=== PATIENT | female | born 1970 | race Caucasian/White ===

== ENCOUNTER 2025-04-08 12:23 | Inpatient (IN) | payer BC, SELFPAY ==
[2025-04-08] VITALS (8 sets, daily range): BP systolic 101–134; BP diastolic 47–69; PULSE 92–118; RESP 12–118; TEMP 36.7–37.1; O2SAT 93–99; BMI 35.7; BMI 37.2; BMI 32.4
--- NOTE | ~2025-04-08 | CT_ITS ---
CLINICAL HISTORY: triple phase portal vein thrombosis, PER MD LIVER PROTOCOL OK TO CHANGE --- Additional Notes or Special Instructions: went to get at 1536 pts iv was not working, nurse putting in CT angio abdomen with and without contrast Comparison: US/SR - US ABDOMEN DOPPLER - 04/08/25 14:51 EDT Findings: Small right pleural effusion. Consolidation of the right lower lobe. The left lung base is clear. Status post cholecystectomy. The common bile duct measures the upper limit of normal status post cholecystectomy, measuring up to 1.0 cm. Cirrhotic liver morphology with lobular contour of the liver capsule. The liver measures 19.5 cm in craniocaudal dimension. On the noncontrast images the liver is markedly decreased in attenuation, measuring 10 Hounsfield units. No liver lesion; no lesions which appear on the arterial phase images and demonstrate washout. No splenomegaly. Subcentimeter low attenuating lesion in the left kidney which is too small to characterize. The other solid organs are unremarkable. No bowel dilation. There is wall thickening of the small bowel and colon which is likely secondary to increased hydrostatic pressure from portal hypertension. A normal appendix is identified. No aneurysm, dissection or significant stenosis. The hepatic artery is patent without significant stenosis. Moderate calcified atherosclerotic disease. There are large varices in the upper abdomen which extend down into the left lower quadrant. Esophageal varices are present. Of the portal vein is patent without thrombus. Patent splenic and superior mesenteric veins. Patent hepatic veins. Lymphadenopathy in the rajwinder hepatis measures up to 1.2 cm in short axis. Small ascites. No acute osseous abnormality. Impression: No portal vein thrombus. Cirrhotic liver with small ascites and large varices. No suspicious liver lesions. 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 Consolidation of the right lower lobe, likely compressive atelectasis. This document has been electronically signed by: Estephania Gerardo MD on 04/08/2025 19:03:47
--- NOTE | ~2025-04-08 | US_ITS ---
EXAMINATION: US PORTAL VEIN, HEPATIC VEINS, SPLENIC VESSELS AND HEPATIC ARTERY WITH COLOR DOPPLER SPECTRAL ANALYSIS. CLINICAL INFORMATION: Cirrhosis. Right upper quadrant pain. Hyperbilirubinemia. COMPARISON: None available. TECHNIQUE: Ultrasound along with color Doppler imaging and spectral analysis was performed of the main portal veins, hepatic veins, splenic vessels, hepatic artery. FINDINGS: The main portal vein and main left and right portal veins demonstrated intraluminal echo abnormality with hepatofugal flow direction. The interrogated middle left hepatic veins are patent with normal hepatofugal flow direction. The right is not fully depicted on the exam. The splenic vessels are patent with normal flow direction. The main hepatic artery is peak systolic velocity 313 cm/s. The left hepatic artery is patent with peak systolic velocity 96 cm/s. The left hepatic artery is patent with peak systolic velocity 174 cm/s. Small to moderate volume of ascites. US/US abdomen limited IMPRESSION: Nonocclusive thrombus in the main portal veins with hepatofugal flow direction. Concerning hemodynamically significant stenosis in the main hepatic artery. Ascites, small to moderate volume. Recommend dedicated triple phase liver CT versus MRI liver. Electronically signed by: Flip Oreilly MD 04/08/2025 03:49 PM EDT
--- NOTE | ~2025-04-08 | US_ITS ---
EXAMINATION: US PORTAL VEIN, HEPATIC VEINS, SPLENIC VESSELS AND HEPATIC ARTERY WITH COLOR DOPPLER SPECTRAL ANALYSIS. CLINICAL INFORMATION: Cirrhosis. Right upper quadrant pain. Hyperbilirubinemia. COMPARISON: None available. TECHNIQUE: Ultrasound along with color Doppler imaging and spectral analysis was performed of the main portal veins, hepatic veins, splenic vessels, hepatic artery. FINDINGS: The main portal vein and main left and right portal veins demonstrated intraluminal echo abnormality with hepatofugal flow direction. The interrogated middle left hepatic veins are patent with normal hepatofugal flow direction. The right is not fully depicted on the exam. The splenic vessels are patent with normal flow direction. The main hepatic artery is peak systolic velocity 313 cm/s. The left hepatic artery is patent with peak systolic velocity 96 cm/s. The left hepatic artery is patent with peak systolic velocity 174 cm/s. Small to moderate volume of ascites. US/US duplex arterial venous comp IMPRESSION: Nonocclusive thrombus in the main portal veins with hepatofugal flow direction. Concerning hemodynamically significant stenosis in the main hepatic artery. Ascites, small to moderate volume. Recommend dedicated triple phase liver CT versus MRI liver. Electronically signed by: Flip Oreilly MD 04/08/2025 03:49 PM EDT
--- NOTE | 2025-04-08 12:30 | ED_ITS ---
HPI - General Adult General Chief complaint: General Medical Stated complaint: check Liver Function Time Seen by Provider: 04/08/25 13:23 Source: patient Mode of arrival: ambulatory Limitations: no limitations History of Present Illness ED Provider: KHADIJAH Alarcon HPI narrative: This is a 54-year-old female with past medical history significant for atypical ductal hyperplasia, cirrhosis of the liver, dysthymia, hypertension, facial neuralgia, hepatic steatosis, hyperlipidemia, obesity, alcohol abuse presenting to the emergency department for concerns of yellowing of the eyes lower extremity edema, abdominal distention ongoing for the past few months rapidly worsening. Patient reports a few months ago she was diagnosed with liver cirrhosis. She tells me she does not have a history of hepatitis however she drinks 2 glasses of wine a day. She is still currently drinking. She reports the reason she decided to come in today as her , she reports he is afraid she is in liver failure. She denies fevers, chills abdominal pain, nausea, vomiting, chest pain, shortness of breath, headache, vision changes, dizziness and weakness. Related Data Allergies Allergy/AdvReac Type Severity Reaction Status Date / Time No Known Allergies Allergy Verified 04/08/25 12:33 Review of Systems 2 Review of Systems: Yes all other systems are reviewed and are negative PMFSH Past Medical History Attestation statement: The following information was validated with the patient. Source: old records reviewed and nursing notes reviewed Social History Social History Alcohol intake: current Alcohol intake frequency: 0-2 drinks per day Alcohol type: beer and wine Smoked in Last 30 Days: No Use of substances other than those prescribed or required for medical reasons: No Advance Directives: Yes Advance Directives Information Provided: Yes Advance Directives on File: No Patient : No Physical Exam ED Exam Exam: Appearance: Alert.? Oriented X3.? No acute distress.? Head: Normocephalic, atraumatic, no step-offs or deformities Eyes: Pupils equal, round and reactive to light.?+ jaundice to eyes ENT: Pharynx normal.? Neck: Normal inspection.? Neck supple.? CVS: Normal heart rate and rhythm.? Pulses normal.? Respiratory: No respiratory distress.? Breath sounds normal.? Abdomen: Soft and nontender.?Ascites noted Skin: Skin warm and dry.? + jaundice skin color.? Normal skin turgor.? Extremities: + LE edema 3+ pitting.? No calf ttp. 5/5 strength to bilateral upper and lower extremities Back: No midline tenderness, no C-spine tenderness, full range of motion, no CVA tenderness bilaterally Neuro: Oriented X 3.? No motor deficit.? No sensory deficit. CN 2-12 intact Vital Signs: Vital Signs - 24 hr 04/08/25 12:30 04/08/25 13:31 04/08/25 14:28 Temperature 98.0 F 98.4 F Pulse Rate 118 H 96 100 Respiratory Rate 18 12 16 Blood Pressure 117/56 L 124/60 114/63 Pulse Oximetry 95 97 96 Oxygen Delivery Method Room Air Room Air Room Air 04/08/25 15:51 Temperature 98.8 F Pulse Rate 97 Respiratory Rate 12 Blood Pressure 101/47 L Pulse Oximetry 96 Oxygen Delivery Method Room Air BMI result Body Mass Index 37.2 Vital signs stable Course Course Course Narrative: Rapid medical examination performed in triage by Lisette Louise PA-C. Patient is a 54 year old assigned female at presenting to the emergency department requesting liver testing. Patient states that she is a daily drinker but has cut back how much she drinks per day. Patient was diagnosed with cirrhosis through [facility] on 12/23/2024. Detailed physical exam and review of systems are deferred to the supervisor waterproofing. Labs ordered. Patient placed back in the waiting room pending room availability and results. Reevaluation(s) Reevaluation #1: Patient's CBC with a anemia MCV 99.3 likely secondary to alcohol abuse chronically. Chemistry with total bilirubin 8.3 , direct bilirubin pending. AST ALT elevated in a nearly 2-1 fashion against supporting chronic alcohol abuse. Albumin 2.7. Patient's hepatitis panel negative. I did get a ultrasound of right upper extremity with color Doppler which shows nonocclusive thrombus in the main portal vein with hepatofugal flow direction. Concerning hemodynamically significant stenosis in the main hepatic artery. Ascites, [id number] volume. I did discuss this with GI who recommends triple phase CT or MRI. MRI can be done upon hospital admission. Hospitalist aware of case. I am waiting for CT abdomen and pelvis prior to admitting patient . Time: 16:01 Reevaluation #2: I did start patient on phenobarbital for prevention of alcohol withdrawal seizures. Patient has never really stopped drinking alcohol since she was [address] abdomen still pending. Time: 16:33 Medications Administered Generic Name Dose Route Start Last Admin Trade Name Freq PRN Reason Stop Dose Admin Ceftriaxone Sodium 1 gm 04/08/25 16:00 04/08/25 16:28 Ceftriaxone Sodium 1 Gm Vial IVPUSH 1 gm Q24H RICH Administration Discontinued Medications Generic Name Dose Route Start Last Admin Trade Name Freq PRN Reason Stop Dose Admin Phenobarbital Sodium 182 mg 04/08/25 16:15 04/08/25 16:29 Phenobarbital Sodium 130 Mg/Ml Im Once IM 04/08/25 16:16 182 mg ONCE ONE Administration Medical Decision Making Medical Decision Making [facility] Narrative: 1429 This is a 54-year-old female presenting with worsening abdominal distention, yellowing of the eyes and skin, easy bruising, rapidly worsening lower extremity edema. Denies shortness of breath, abdominal pain, fevers, chills Physical exam ascites, jaundice eyes, skin. Significantly edematous lower extremities 3+ bilaterally pitting. 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 Will rule out metabolic derangements, anemia. I do not suspect SBP no abdominal tenderness to palpation no fevers or clinical signs of infection at this time. Patient does have a bruise to her right breast, no associated trauma. I do not suspect acute hepatic encephalopathy. Plan labs, imaging. 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 Will rule out metabolic derangements, anemia. I do not suspect SBP no abdominal tenderness to palpation no fevers or clinical signs of infection at this time. Patient does have a bruise to her right) Admission/Observation Consideration of admission/observation: Escalation of care including admission/observation considered Consult Healthcare Provider Management of the patient was discussed with: Stallion Manager (GI ) Lab Data [facility] Lab Attestation statement: I reviewed the patient's lab results. 04/08/25 12:53 04/08/25 12:53 Labs: Lab Results 04/08/25 Range/Units 12:53 WBC 8.4 (4.8-10.8) X10*3/uL RBC 2.69 L (4.20-5.50) X10*6/uL Hgb 9.2 L (12.0-16.0) g/dl Hct 26.7 L (37.0-47.0) % MCV 99.3 H (80.0-98.0) fL MCH 34.2 H (27.0-33.0) pg MCHC 34.5 (31.0-35.0) g/dl RDW 19.1 H (11.0-16.0) % Plt Count 67 L (160-400) X10*3/uL MPV 10.5 (9.4-12.3) fL Immature Gran % (Auto) 0.7 H (0.0-0.4) % Neut % (Auto) 73.2 H (45-73) % Lymph % (Auto) 12.9 L (20-40) % [place] % (Auto) 11.4 H (2-11) % Eos % (Auto) 0.6 (0-4) % Baso % (Auto) 1.2 (0-2) % Lymph # (Auto) 1.1 L (1.2-4.9) X10*3/uL [place] # (Auto) 1.0 (0.1-1.2) X10*3/uL Eos # (Auto) 0.1 (0.0-0.4) X10*3/uL Baso # (Auto) 0.1 (0.0-0.2) X10*3/uL Abs Immat Gran (auto) 0.06 H (0.00-0.03) X10*3/uL Absolute Neuts (auto) 6.1 (2.0-8.3) x10*3/uL Absolute Nucleated RBC 0.000 (0.0-0.012) X10*3/uL Nucleated RBC % (auto) 0.0 (0.0-0.2) /100WBC Sodium 132 L (135-145) mmol/L Potassium 4.6 (3.3-5.1) mmol/L Chloride 100 (96-108) mmol/L Carbon Dioxide 20 L (22-29) mmol/L Anion Gap 17 (12-20) BUN 12 (9-16) mg/dL Creatinine 1.04 (0.5-1.4) mg/dL Estim Creat Clear Calc 60.4 Estimated GFR 56 Random Glucose 162 H (60-115) mg/dL Calcium 7.9 L (8.4-10.2) mg/dL Magnesium 1.8 (1.6-2.6) mg/dL Total Bilirubin 8.3 H (0.0-1.0) mg/dL Direct Bilirubin 4.6 H (0.0-0.5) mg/dL AST 188 H (5-31) U/L ALT 50 H (0-31) U/L Alkaline Phosphatase 109 (39-117) U/L B-Natriuretic Peptide 90 (<100) pg/mL Total Protein 7.3 (6.5-8.0) g/dL Albumin 2.7 L (3.5-5.0) g/dL Ethyl Alcohol 275 mg/dL Hepatitis A IgM Ab Nonreactive (Nonreactive) Hep Bs Antigen Negative (Negative) Hep Bs Antibody NONREACTIVE (Nonreactive) Hep B Core Total Ab Nonreactive (Nonreactive) Hepatitis C Ab (EIA) Nonreactive (Nonreactive) Independent Interpretation I performed an independent interpretation of an: CT Scan Radiology Impression Discussion of test interpretation with radiology: I have reviewed the radiologist's reading. Independent Historian Clinical information obtained from an independent historian. History obtained from or confirmed by: Spouse External Record Review External record reviewed: Inpatient record, Office record, Outpatient record, Prior outpatient labs, Prior outpatient radiology, Primary care record and Outside ED record I did review records from [facility]. She had a CT abdomen and pelvis on on 12/17/2024 with IV and oral contrast which shows slight apparent wall thickening of the proximal ascending colon with minimal surrounding fat stranding. Multiple vascular collaterals along the left retroperitoneum with dilated left ovarian vein. Few small collateral vessels extending from the right ovary towards the anterior abdominal wall. Cirrhotic morphology of the liver. Tiny subcutaneous soft tissue contusion Critical Care Time Critical Care Time Critical Care Time: Yes Total Critical Care Time: 35 Attestation: I attest to this time spent taking care of the patient, obtaining history, physical, reviewing labs, imaging, treatment of patients condition +/- specialist/hospitalist consult +/- procedure Discharge Plan Discharge Clinical Impression: Hepatitis, Cirrhosis, Budd-Chiari syndrome, Alcohol use disorder Patient Disposition: Admitted As Inpatient Print Language: Monegasque
[2025-04-08 12:57] LABS: MANUAL DIFF FLAG NO
[2025-04-08 12:59] LABS: Hemoglobin 9.2 g/dl (12.0-16.0); NRBC Abs Auto 0.000 X10*3/uL (0.0-0.012); NRBC Pct Auto 0.0 /100WBC (0.0-0.2)
[2025-04-08 13:04] LABS: Hematocrit 26.7 % (37.0-47.0); Imm Gran Abs Auto 0.06 X10*3/uL (0.00-0.03); Imm Gran Pct Auto 0.7 % (0.0-0.4); Lymphocytes Absolute Auto 1.1 X10*3/uL (1.2-4.9); Mean Corpuscular HGB Conc 34.5 g/dl (31.0-35.0); Mean Corpuscular Hemoglobin 34.2 pg (27.0-33.0); Mean Corpuscular Volume 99.3 fL (80.0-98.0); Red Blood Count 2.69 X10*6/uL (4.20-5.50); White Blood Count 8.4 X10*3/uL (4.8-10.8)
[2025-04-08 13:05] LABS: Platelet Count 67 X10*3/uL (160-400)
[2025-04-08 13:27] LABS: Alanine Aminotransferase 50 U/L (0-31); Albumin Level 2.7 g/dL (3.5-5.0); Alkaline Phosphatase 109 U/L (39-117); Anion Gap 17 (12-20); Aspartate Amino Transferase 188 U/L (5-31); Blood Urea Nitrogen 12 mg/dL (9-16); Calcium 7.9 mg/dL (8.4-10.2); Carbon Dioxide 20 mmol/L (22-29); Chloride 100 mmol/L (96-108); Creatinine Clr Calc Pharmacy 60.4; Estimated Glomerular Filt Rate 56; Magnesium 1.8 mg/dL (1.6-2.6); Potassium 4.6 mmol/L (3.3-5.1); Sodium 132 mmol/L (135-145); Total Protein 7.3 g/dL (6.5-8.0)
--- NOTE | 2025-04-08 13:27 | PC.NURSE ---
Took all meds all usual meds. No Tylenol for several weeks. She was using it for a shoulder injury. Reports that years ago she may have had a seizure r/t alcohol withdrawal. Usually drinks 1-2 servings of alcohol daily. No complaints, family and friends concerned about her liver.
[2025-04-08 13:43] LABS: HBS Num1 0.00 mIU/mL (0-7.99); HBc Num1 0.12 S/CO (0.00-0.79); HBsAGNum1 0.35 S/CO (0.00-0.99); Hepatitis A Antibody IgM 0.25 Index (0-0.79); Hepatitis B Surface Antigen Negative (Negative); ~HepC Num1 0.27 S/CO (0.00-0.79); ~Hepatitis A Antibody IgM Nonreactive (Nonreactive); ~Hepatitis B Surface Antibody NONREACTIVE (Nonreactive); ~Hepatitis C Antibody Nonreactive (Nonreactive)
[2025-04-08 15:54] LABS: B Type Natriuretic Peptide 90 pg/mL (<100)
[2025-04-08] MEDS: PHENobarbitaL sodium 130 MG/ML IM ONCE 182 MG IM (16:29)
--- NOTE | 2025-04-08 16:30 | P.HPHOSP_ITS ---
History of Present Illness Date of Service: 04/08/25 Chief Complaint: yellow skin, abdominal and leg swelling 54yo F with HTN recently diagnosed by her PCP with cirrhosis on CT scan in November 2024. At that point her total bilirubin was 1.7. The scan was ordered due to abdominal swelling and bruising. She came in today with worsening jaundice, abdominal swelling, and leg swelling. She drinks at least 1 serving of wine or beer daily and often much more, up to 5-10 servings daily on the weekends. This has been the case since she was 22 years old with periods of sobriety for and a cleanse . Sometimes she does get shaky when she doesn't drink but no history of seizures. No real abdominal discomfort or pain. No hematemesis, hematochezia, or melena. No confusion. No history of diabetes and no family history of liver disease. Here in the ED, Tbili was 8.3. Serum ethanol level 275. She was anemic and thrombocytopenic. Abominal US showed nonocclusive thrombus in the main portal veins with hepatofugal flow direction; as well as concerning hemodynamically significant stenosis in the main hepatic artery. Review of Systems 2 Review of Systems: Yes all other systems are reviewed and are negative [facility] History Hypertension Social History Household Members: Children Housing: House Do you presently have visiting nurse or other home services: No Alcohol intake: current Alcohol intake frequency: 0-2 drinks per day Alcohol type: beer and wine Patient Tobacco Use Status: Former Tobacco user Tobacco use type: Cigarette Smoked in Last 30 Days: No e-Cigarette/Vaping Use: Never Used Use of substances other than those prescribed or required for medical reasons: No Currently Displaying Signs/Symptoms of Drug Intoxication Withdrawal: No Have you been hit, kicked, punched, or otherwise hurt by someone within the past year? If so, by whom?: No Do you feel safe in your current relationship?: Yes Is there a partner from a previous relationship who is making you feel unsafe now?: No Are you made to feel afraid or neglected: No Advance Directives: Yes Advance Directives Information Provided: Yes Advance Directives on File: No Advance Directives Date on File: 04/08/25 Recently lost weight without trying: No Eating poorly because of decreased appetite: No Nutrition Risks: No Nutritional Risk Patient : No : No Poor oral hygiene: No Meds Allergies Allergy/AdvReac Type Severity Reaction Status Date / Time No Known Allergies Allergy Verified 04/08/25 12:33 Active Medications: Current Medications Ceftriaxone Sodium (Ceftriaxone Sodium 1 Gm Vial) 1 gm IVPUSH Q24H RICH Last Admin: 04/08/25 16:28 Dose: 1 gm Pharmacy Consult (Consult Rx Etoh Phenob Im/Po) 1 each MISCELLANE ONCE PRN; Protocol PRN Reason: Consult order Phenobarbital (Phenobarbital 30 Mg Tablet) 30 mg PO BID [facility] Stop: 04/10/25 21:01 Phenobarbital (Phenobarbital 15 Mg Tablet) 15 mg PO BID [facility] Stop: 04/12/25 21:01 Phenobarbital (Phenobarbital 15 Mg Tablet) 15 mg PO DAILY RICH Stop: 04/14/25 09:01 Phenobarbital Sodium (Phenobarbital Sodium 130 Mg/Ml Vial Im Q3hx2) 137 mg IM Q3H RICH Stop: 04/08/25 22:31 Home Medications ?Medication ?Instructions ?Recorded ?Confirmed ?Last Taken ?Type meloxicam 15 mg tablet 15 mg PO DAILY PRN Pain 03/2804/08/25 04/08/25 History olmesartan 5 mg tablet 10 mg PO DAILY 04/08/2503/2804/08/25 History Physical Exam 2 Vital Signs and Narrative: Vital Signs: Last Vital Signs Temp 98.8 F 04/08/25 15:51 Pulse 97 04/08/25 15:51 Resp 12 04/08/25 15:51 BP 101/47 L 04/08/25 15:51 Pulse Ox 96 04/08/25 15:51 O2 Del Method Room Air 04/08/25 15:51 BMI result Body Mass Index 37.2 Gen: somewhat tremulous HEENT: sclera anicteric, moist mucus membranes Neck: supple Lungs: clear to auscultation bilaterally Heart: regular, tachycardic, no murmurs Abd: soft, distended, non-tender Ext: 1+ lower extremity edema Skin: warm/well-perfused, jaundiced with extensive spider angiomata Neuro: alert and oriented x3, no focal findings Psych: appropriate affect Results Labs 04/08/25 12:53 04/09/25 07:30 Labs: Laboratory Results - last 24 hr 04/08/25 12:53 MCV 99.3 H MCH 34.2 H MCHC 34.5 RDW 19.1 H Plt Count 67 L MPV 10.5 Immature Gran % (Auto) 0.7 H Neut % (Auto) 73.2 H Lymph % (Auto) 12.9 L [place] % (Auto) 11.4 H Eos % (Auto) 0.6 Baso % (Auto) 1.2 Lymph # (Auto) 1.1 L [place] # (Auto) 1.0 Eos # (Auto) 0.1 Baso # (Auto) 0.1 Abs Immat Gran (auto) 0.06 H Absolute Neuts (auto) 6.1 Absolute Nucleated RBC 0.000 Nucleated RBC % (auto) 0.0 Anion Gap 17 Estim Creat Clear Calc 60.4 Estimated GFR 56 Random Glucose 162 H Calcium 7.9 L Magnesium 1.8 Total Bilirubin 8.3 H Direct Bilirubin 4.6 H AST 188 H ALT 50 H Alkaline Phosphatase 109 B-Natriuretic Peptide 90 Total Protein 7.3 Albumin 2.7 L Ethyl Alcohol 275 Hepatitis A IgM Ab Nonreactive Hep Bs Antigen Negative Hep Bs Antibody NONREACTIVE Hep B Core Total Ab Nonreactive Hepatitis C Ab (EIA) Nonreactive Imaging Radiologist's Impressions: Impressions Doppler Study Ultrasound 04/08/25 14:51 IMPRESSION: Nonocclusive thrombus in the main portal veins with hepatofugal flow direction. Concerning hemodynamically significant stenosis in the main hepatic artery. Ascites, small to moderate volume. Recommend dedicated triple phase liver CT versus MRI liver. Electronically signed by: Flip Oreilly MD 04/08/2025 03:49 PM EDT Assessment and Plan (1) Cirrhosis: Status: Acute Plan 54yo F with recently diagnosed cirrhosis likely due to alcohol presenting with worsening jaundice, concern for portal vein thrombosis as well as hepatic artery stenosis. portal vein thrombosis cirrhosis ascites anemia thrombocytopenia - admit to telemetry, triple-phase CT to elucidate portal vein thrombosis as well as to check hepatic artery, GI consultation to discuss anticoagulation - monitor CBC, check FOBT, also check INR- consider steroids for EtOH hepatitis - not enough ascites to tap; place on ceftriaxone for SBP prophylaxis; diuretics eventually AUD with impending withdrawal - Addiction Medicine consult, phenobarbital taper, thiamine, folate, multivitamins HTN - hold antihypertensives as BP is soft VTE ppx - SCDs dispo - TBD code - full I anticipate that the patient will stay at least 2 midnights as an inpatient in the hospital due to the above reasons. It is neither reasonable nor safe to care for them in a less acute setting. Quality Stroke Does the patient have a stroke diagnosis?: No VTE Prior VTE?: No VTE Risk Level:: Medical - moderate - high VTE Device Contraindication: N/A - Device Ordered VTE Drug Contraindication: N/A - Med Ordered
[2025-04-08 17:13] LABS: Ammonia 69 umol/L (13-55); INTERNATIONAL NORM RATIO 2.0 (0.9-1.1); Prothrombin Time 22.9 SEC (10.9-12.4)
[2025-04-08 17:51] LABS: Hemoglobin A1C 98.6326 umol/L; Total Hemoglobin (HGBA1C) 4985.6705 umol/L
[2025-04-08] MEDS: iohexoL 350 MG/ML 100 ML INFUS..BTL IV (18:11)
--- NOTE | 2025-04-08 18:11 | PHA.MEDREC ---
Addendum entered by Pravin Washington PharmD 04/08/25 18:13: reviewed Original Note: Pharmacy Consult ? Medication Reconciliation Pharmacy has completed the medication reconciliation. Patient was able to name her medications. Patient had all her morning medications today.
[2025-04-08] MEDS: PHENobarbitaL sodium 130 MG/ML VIAL IM Q3Hx2 137 MG IM ×2 (20:18→22:58)
[2025-04-08] MEDS: 0.9 % Sodium Chloride Flush 3 ML SYRINGE IVFLUSH (22:59)
[2025-04-09] VITALS (9 sets, daily range): BP systolic 118–141; BP diastolic 57–67; PULSE 94–102; RESP 16–20; TEMP 36.9–37.4; O2SAT 94–100
[2025-04-09 08:21] LABS: INTERNATIONAL NORM RATIO 2.0 (0.9-1.1); Prothrombin Time 23.0 SEC (10.9-12.4)
[2025-04-09 09:02] LABS: Alanine Aminotransferase 38 U/L (0-31); Albumin Level 2.4 g/dL (3.5-5.0); Alkaline Phosphatase 101 U/L (39-117); Anion Gap 14 (12-20); Aspartate Amino Transferase 162 U/L (5-31); Blood Urea Nitrogen 9 mg/dL (9-16); Calcium 7.6 mg/dL (8.4-10.2); Carbon Dioxide 22 mmol/L (22-29); Chloride 101 mmol/L (96-108); Creatinine Clr Calc Pharmacy 99.3; Estimated Glomerular Filt Rate > 60; Potassium 4.2 mmol/L (3.3-5.1); Sodium 133 mmol/L (135-145); Total Protein 6.6 g/dL (6.5-8.0)
[2025-04-09] MEDS: Phytonadione (Vit K1) Oral 10 MG/ML AMPUL PO (09:09)
[2025-04-09] MEDS: 0.9 % Sodium Chloride Flush 3 ML SYRINGE IVFLUSH ×3 (09:10→19:28)
--- NOTE | 2025-04-09 09:43 | HO.PM.IMPN ---
Subjective Subjective Date of Service: 04/09/25 Interval History: No hematemesis, hematochezia, or melena. Abd swelling + leg edema. Review of Systems Review of Systems: Yes all other systems are reviewed and are negative Physical Exam Vital Signs: Vital Signs: Last Vital Signs Temp 98.5 F 04/09/25 08:00 Pulse 94 04/09/25 08:00 Resp 18 04/09/25 08:00 BP 121/58 L 04/09/25 08:00 Pulse Ox 100 04/09/25 08:00 O2 Del Method Room Air 04/09/25 08:00 BMI result Body Mass Index 32.4 Gen: in no acute distress HEENT: sclera icteric, moist mucus membranes Neck: supple Lungs: clear to auscultation bilaterally Heart: regular rate and rhythm, no murmurs Abd: soft, non-tender Ext: 1+ bilateral leg edema Skin: warm/well-perfused, jaundiced Neuro: alert and oriented x3, no focal findings, no asterixis Psych: appropriate affect Objective Data Active Medications Acetaminophen (Acetaminophen 325 Mg Tablet) 650 mg PO Q6H PRN PRN Reason: Pain, Mild 1-3,fever,headache Calcium Carbonate (Calcium Carbonate 750 Mg Tab.Chew) 750 mg PO Q4H PRN PRN Reason: Heartburn Ceftriaxone Sodium (Ceftriaxone Sodium 1 Gm Vial) 1 gm IVPUSH Q24H [facility] Last Admin: 04/08/25 16:28 Dose: 1 gm Documented By: JESSY Folic Acid (Folic Acid 1 Mg Tablet) 1 mg PO DAILY [facility] Last Admin: 04/09/25 09:08 Dose: 1 mg Documented By: CHRISTOPHE Furosemide (Furosemide 40 Mg Tablet) 40 mg PO DAILY [facility]; Protocol Magnesium Hydroxide (Milk Of Magnesia 30 Ml Oral.Susp) 30 ml PO DAILY PRN PRN Reason: Constipation Melatonin (Melatonin 3 Mg Tablet) 6 mg PO BEDTIME PRN PRN Reason: Insomnia Multivitamins/Vitamin C (Multivitamin Tablet) 1 tab PO DAILY [facility] Last Admin: 04/09/25 09:08 Dose: 1 tab Documented By: CHRISTOPHE Ondansetron HCl (Ondansetron Hcl 4 Mg/2 Ml Vial) 4 mg IVPUSH Q4H PRN PRN Reason: Nausea and Vomiting Pharmacy Consult (Consult Rx Etoh Phenob Im/Po) 1 each MISCELLANE ONCE PRN; Protocol PRN Reason: Consult order Phenobarbital (Phenobarbital 30 Mg Tablet) 30 mg PO BID [facility] Stop: 04/10/25 21:01 Last Admin: 04/09/25 09:08 Dose: 30 mg Documented By: CHRISTOPHE Phenobarbital (Phenobarbital 15 Mg Tablet) 15 mg PO BID [facility] Stop: 04/12/25 21:01 Phenobarbital (Phenobarbital 15 Mg Tablet) 15 mg PO DAILY [facility] Stop: 04/14/25 09:01 Sodium Chloride (0.9 % Sodium Chloride Flush 3 Ml Syringe) 3 ml IVFLUSH QSHIFT [facility] Last Admin: 04/09/25 09:10 Dose: 3 ml Documented By: CHRISTOPHE Spironolactone (Spironolactone 25 Mg Tablet) 25 mg PO DAILY [facility]; Protocol Thiamine HCl (Thiamine Hcl 100 Mg Tablet) 100 mg PO DAILY [facility] Last Admin: 04/09/25 09:08 Dose: 100 mg Documented By: CHRISTOPHE Labs 04/08/25 12:53 04/09/25 07:30 Labs: Laboratory Results - last 24 hr 04/08/25 04/08/25 04/09/25 12:53 17:00 07:30 MCV 99.3 H MCH 34.2 H MCHC 34.5 RDW 19.1 H Plt Count 67 L MPV 10.5 Immature Gran % (Auto) 0.7 H Neut % (Auto) 73.2 H Lymph % (Auto) 12.9 L Dyer % (Auto) 11.4 H Eos % (Auto) 0.6 Baso % (Auto) 1.2 Lymph # (Auto) 1.1 L Dyer # (Auto) 1.0 Eos # (Auto) 0.1 Baso # (Auto) 0.1 Abs Immat Gran (auto) 0.06 H Absolute Neuts (auto) 6.1 Absolute Nucleated RBC 0.000 Nucleated RBC % (auto) 0.0 Hold Purple Top SEE NOTE PT 22.9 H 23.0 H INR 2.0 H 2.0 H Anion Gap 17 14 Estim Creat Clear Calc 60.4 99.3 Estimated GFR 56 > 60 Random Glucose 162 H 87 Estimat Average Glucose 68 Hemoglobin A1c % 4.0 Calcium 7.9 L 7.6 L Magnesium 1.8 Total Bilirubin 8.3 H 6.0 H Direct Bilirubin 4.6 H AST 188 H 162 H ALT 50 H 38 H Alkaline Phosphatase 109 101 Ammonia 69 H B-Natriuretic Peptide 90 Total Protein 7.3 6.6 Albumin 2.7 L 2.4 L Ethyl Alcohol 275 Hepatitis A IgM Ab Nonreactive Hep Bs Antigen Negative Hep Bs Antibody NONREACTIVE Hep B Core Total Ab Nonreactive Hepatitis C Ab (EIA) Nonreactive Assessment and Plan (1) Cirrhosis: Status: Acute Plan d2 for 54yo F with recently diagnosed cirrhosis likely due to alcohol presenting with worsening jaundice, concern for portal vein thrombosis as well as hepatic artery stenosis on US but CT did not show these cirrhosis - likely alcoholic; cessation counseled; Gastroenterology consult pending alcoholic hepatitis - MDF high; discuss steroids with Gastroenterology ascites - Na restriction, start furosemide + spironolactone, recheck BMP tomorrow, ceftriaxone to prevent SBP coagulopathy - vit K 10 mg PO x1, recheck INR tomorrow anemia thrombocytopenia - recheck CBC tomorrow, avoid heparin AUD with impending withdrawal - Addiction Medicine consult pending, continue phenobarbital taper, thiamine, folate, multivitamins HTN - d/c olmesartan as starting diuretics as above VTE ppx - SCDs dispo - eventual home In my clinical judgment, the patient requires continued inpatient hospitalization for the following reasons: phenobarbital taper, EtOH hepatitis Total time managing care of this patient today: 40 minutes. Quality Stroke Does the patient have a stroke diagnosis?: No VTE Prior VTE?: No VTE Risk Level:: Medical - moderate - high VTE Device Contraindication: N/A - Device Ordered VTE Drug Contraindication: N/A - Med Ordered
[2025-04-09 13:34] LABS: OBS Int Ctl Valid YES; OBS1 NEGATIVE (NEGATIVE)
[2025-04-09 14:56] LABS: Hemoglobin 8.4 g/dl (12.0-16.0); Mean Corpuscular Volume 99.6 fL (80.0-98.0); NRBC Abs Auto 0.000 X10*3/uL (0.0-0.012); NRBC Pct Auto 0.0 /100WBC (0.0-0.2); PLT CLUMP 1
[2025-04-09 14:58] LABS: Hematocrit 23.7 % (37.0-47.0); Mean Corpuscular HGB Conc 35.4 g/dl (31.0-35.0); Mean Corpuscular Hemoglobin 35.3 pg (27.0-33.0); Platelet Count 57 X10*3/uL (160-400); Red Blood Count 2.38 X10*6/uL (4.20-5.50); White Blood Count 5.9 X10*3/uL (4.8-10.8)
--- NOTE | 2025-04-09 16:36 | MHC.CM.PN ---
PT REPORTS SHE LIVES AT HOME WITH HER DAUGHTER AND IS INDEPENDENT WITH CARE SHE HAS NO DME OR SERVICES COPY OF HCP REQUESTED PCP: [facility] DCP: HOME VIA PRIVATE TRANSPORT
--- NOTE | 2025-04-09 17:02 | PM.EVENT ---
Event Note Date of Service: 04/09/25 Event Note: Pt has a very small but persistent area of bleeding from the right side of her nose, externally. Pressure has been applied with nasal clamp, gauze, and Surgicel. However, the area persistently oozes. Surgicel replaced. WIll give IV TXA, IV vit K, consult Gen Surg- may need cauterization. Considered silver nitrate but this may scar. Time Spent With Patient Time: Total time managing care of this patient today ____ minutes.
--- NOTE | 2025-04-09 17:50 | P.CONGS_ITS ---
History of Present Illness Consult details Consult date: 04/09/25 Narrative: [age] year old female with known cirrhosis, admitted yesterday because of worsening jaundice. He will bilirubin was noted to be 8 on admission. She also has known alcohol use disorder and previous hepatitis She had this skin lesion on the right ala of the nose which he had been bleeding constantly despite pressure dressings so I was consulted. The patient has known thrombocytopenia as well. Review of Systems 2 Constitutional: Constitutional: Denies chills and Denies fever(s) Cardiovascular: Cardiovascular: Denies chest pain at rest Respiratory: Respiratory: Denies cough Gastrointestinal: Gastrointestinal: Denies abdominal pain Genitourinary: Genitourinary: Denies urinary frequency PMFSH Past Medical History Medical History (Updated 04/09/25 @ 17:53 by Nacho Kearney MD) Hemorrhage of skin lesion Hypertension Social History Social History Household Members: Children Housing: House Do you presently have visiting nurse or other home services: No Alcohol intake: current Alcohol intake frequency: 0-2 drinks per day Alcohol type: beer and wine Patient Tobacco Use Status: Former Tobacco user Tobacco use type: Cigarette Smoked in Last 30 Days: No e-Cigarette/Vaping Use: Never Used Use of substances other than those prescribed or required for medical reasons: No Currently Displaying Signs/Symptoms of Drug Intoxication Withdrawal: No Have you been hit, kicked, punched, or otherwise hurt by someone within the past year? If so, by whom?: No Do you feel safe in your current relationship?: Yes Is there a partner from a previous relationship who is making you feel unsafe now?: No Are you made to feel afraid or neglected: No Advance Directives: Yes Advance Directives Information Provided: Yes Advance Directives on File: No Advance Directives Date on File: 04/08/25 Recently lost weight without trying: No Eating poorly because of decreased appetite: No Nutrition Risks: No Nutritional Risk Patient : No : No Poor oral hygiene: No service: No Meds Allergies Allergy/AdvReac Type Severity Reaction Status Date / Time No Known Allergies Allergy Verified 04/08/25 12:33 Active Medications: Current Medications Acetaminophen (Acetaminophen 325 Mg Tablet) 650 mg PO Q6H PRN PRN Reason: Pain, Mild 1-3,fever,headache Calcium Carbonate (Calcium Carbonate 750 Mg Tab.Chew) 750 mg PO Q4H PRN PRN Reason: Heartburn Ceftriaxone Sodium (Ceftriaxone Sodium 1 Gm Vial) 1 gm IVPUSH Q24H [facility] Last Admin: 04/09/25 16:40 Dose: 1 gm Folic Acid (Folic Acid 1 Mg Tablet) 1 mg PO DAILY [facility] Last Admin: 04/09/25 09:08 Dose: 1 mg Furosemide (Furosemide 40 Mg Tablet) 40 mg PO DAILY [facility]; Protocol Last Admin: 04/09/25 10:51 Dose: 40 mg Phytonadione 10 mg/ Sodium (Chloride) 51 mls @ 51 mls/hr IV ONCE ONE Stop: 04/09/25 17:55 Magnesium Hydroxide (Milk Of Magnesia 30 Ml Oral.Susp) 30 ml PO DAILY PRN PRN Reason: Constipation Melatonin (Melatonin 3 Mg Tablet) 6 mg PO BEDTIME PRN PRN Reason: Insomnia Multivitamins/Vitamin C (Multivitamin Tablet) 1 tab PO DAILY [facility] Last Admin: 04/09/25 09:08 Dose: 1 tab Ondansetron HCl (Ondansetron Hcl 4 Mg/2 Ml Vial) 4 mg IVPUSH Q4H PRN PRN Reason: Nausea and Vomiting Pharmacy Consult (Consult Rx Etoh Phenob Im/Po) 1 each MISCELLANE ONCE PRN; Protocol PRN Reason: Consult order Phenobarbital (Phenobarbital 30 Mg Tablet) 30 mg PO BID [facility] Stop: 04/10/25 21:01 Last Admin: 04/09/25 09:08 Dose: 30 mg Phenobarbital (Phenobarbital 15 Mg Tablet) 15 mg PO BID [facility] Stop: 04/12/25 21:01 Phenobarbital (Phenobarbital 15 Mg Tablet) 15 mg PO DAILY [facility] Stop: 04/14/25 09:01 Sodium Chloride (0.9 % Sodium Chloride Flush 3 Ml Syringe) 3 ml IVFLUSH QSHIFT [facility] Last Admin: 04/09/25 16:40 Dose: 3 ml Spironolactone (Spironolactone 25 Mg Tablet) 25 mg PO DAILY [facility]; Protocol Last Admin: 04/09/25 10:53 Dose: 25 mg Thiamine HCl (Thiamine Hcl 100 Mg Tablet) 100 mg PO DAILY [facility] Last Admin: 04/09/25 09:08 Dose: 100 mg Home Medications ?Medication ?Instructions ?Recorded ?Confirmed ?Last Taken ?Type meloxicam 15 mg tablet 15 mg PO DAILY PRN Pain 03/2804/08/25 04/08/25 History olmesartan 5 mg tablet 10 mg PO DAILY 04/08/2503/2804/08/25 History Physical Exam 2 Vital Signs: Vital Signs: Last Vital Signs Temp 98.7 F 04/09/25 16:00 Pulse 98 04/09/25 16:00 Resp 18 04/09/25 16:00 BP 121/58 L 04/09/25 16:00 Pulse Ox 98 04/09/25 16:00 O2 Del Method Room Air 04/09/25 16:00 BMI result Body Mass Index 32.4 Const: General: comfortable and no acute distress HEENT: Other: On the right ala of the nose is note of a small bleeding lesion, that appears to be arterial Resp: Effort & Inspection: normal respiratory effort Cardio: Rate: regular rate GI: Palpation (GI): Soft to palpation, not firm and no guarding Results Labs 04/09/25 14:37 04/09/25 07:30 Labs: Abnormal lab results 04/09/25 04/09/25 Range/Units 07:30 14:37 RBC 2.38 L (4.20-5.50) X10*6/uL Hgb 8.4 L (12.0-16.0) g/dl Hct 23.7 L (37.0-47.0) % MCV 99.6 H (80.0-98.0) fL MCH 35.3 H (27.0-33.0) pg MCHC 35.4 H (31.0-35.0) g/dl RDW 18.5 H (11.0-16.0) % Plt Count 57 L (160-400) X10*3/uL PT 23.0 H (10.9-12.4) SEC INR 2.0 H (0.9-1.1) Sodium 133 L (135-145) mmol/L Calcium 7.6 L (8.4-10.2) mg/dL Total Bilirubin 6.0 H (0.0-1.0) mg/dL AST 162 H (5-31) U/L ALT 38 H (0-31) U/L Albumin 2.4 L (3.5-5.0) g/dL Short CBC 04/09/25 Range/Units 14:37 WBC 5.9 (4.8-10.8) X10*3/uL Hgb 8.4 L (12.0-16.0) g/dl Hct 23.7 L (37.0-47.0) % Plt Count 57 L (160-400) X10*3/uL BMP 04/09/25 07:30 Sodium 133 L Potassium 4.2 Chloride 101 Carbon Dioxide 22 BUN 9 Creatinine 0.60 Calcium 7.6 L Liver Function 04/09/25 Range/Units 07:30 Total Bilirubin 6.0 H (0.0-1.0) mg/dL AST 162 H (5-31) U/L ALT 38 H (0-31) U/L Alkaline Phosphatase 101 (39-117) U/L Albumin 2.4 L (3.5-5.0) g/dL All other labs normal. Assessment and Plan (1) Hemorrhage of skin lesion: Status: Acute She has this small lesion that appeared to have arterial bleeding at the right ala of the nose I cauterized this with silver nitrate sticks and this controlled the bleeding. I applied nonadherent dressings These dressings should be kept in place for at least 24 hours. She does have a coagulation disorder from her cirrhosis with a an elevated INR and low platelets so this has contributory to her bleeding. Procedures Date of Service Date of Service: 04/09/25 Procedure Note Procedure Note: Diagnosis: Arterial bleeder from a skin lesion in the right ala of the nose Procedure: Cauterization of arterial bleeder on a skin lesion using silver nitrate sticks There was note of an arterial bleeder on a lesion from the area of the nose. I cauterized this multiple times with silver nitrate sticks and this achieved good hemostasis. I applied perform nonadherent dressings. She tolerated procedure well.
[2025-04-09] MEDS: Tranexamic Acid 1,000 MG in 0.9 % Sodium Chloride 50 ML 360 MG IV (19:02)
[2025-04-10] VITALS (7 sets, daily range): BP systolic 102–135; BP diastolic 54–68; PULSE 100–108; RESP 16–20; TEMP 36.6–37.1; O2SAT 94–96
--- NOTE | 2025-04-10 07:21 | HO.PM.IMPN ---
Subjective Subjective Date of Service: 04/10/25 Interval History: Patient has poor insight Hepatic function continues to worsen in the setting of ongoing alcohol use Review of Systems Review of Systems: Yes Unobtainable due to mental condition and Unobtainable due to mental status Physical Exam Exam: Exam: General: AOx3, mildly tremulous Resp: CTA bilaterally CVS: S1, S2, RRR GI: +BS, NT, no distention Skin: Warm, dry Psych: Poor insight ,was asking we I go home Vital Signs: Vital Signs: Last Vital Signs Temp 98.8 F 04/10/25 04:00 Pulse 108 H 04/10/25 04:00 Resp 20 04/10/25 04:00 BP 132/61 04/10/25 04:00 Pulse Ox 96 04/10/25 04:00 O2 Del Method Room Air 04/10/25 04:00 BMI result Body Mass Index 32.4 Objective Data Active Medications Acetaminophen (Acetaminophen 325 Mg Tablet) 650 mg PO Q6H PRN PRN Reason: Pain, Mild 1-3,fever,headache Calcium Carbonate (Calcium Carbonate 750 Mg Tab.Chew) 750 mg PO Q4H PRN PRN Reason: Heartburn Ceftriaxone Sodium (Ceftriaxone Sodium 1 Gm Vial) 1 gm IVPUSH Q24H [facility] Last Admin: 04/09/25 16:40 Dose: 1 gm Documented By: CHRISTOPHE Folic Acid (Folic Acid 1 Mg Tablet) 1 mg PO DAILY [facility] Last Admin: 04/09/25 09:08 Dose: 1 mg Documented By: CHRISTOPHE Furosemide (Furosemide 40 Mg Tablet) 40 mg PO DAILY [facility]; Protocol Last Admin: 04/09/25 10:51 Dose: 40 mg Documented By: CHRISTOPHE Magnesium Hydroxide (Milk Of Magnesia 30 Ml Oral.Susp) 30 ml PO DAILY PRN PRN Reason: Constipation Melatonin (Melatonin 3 Mg Tablet) 6 mg PO BEDTIME PRN PRN Reason: Insomnia Multivitamins/Vitamin C (Multivitamin Tablet) 1 tab PO DAILY [facility] Last Admin: 04/09/25 09:08 Dose: 1 tab Documented By: CHRISTOPHE Ondansetron HCl (Ondansetron Hcl 4 Mg/2 Ml Vial) 4 mg IVPUSH Q4H PRN PRN Reason: Nausea and Vomiting Pharmacy Consult (Consult Rx Etoh Phenob Im/Po) 1 each MISCELLANE ONCE PRN; Protocol PRN Reason: Consult order Phenobarbital (Phenobarbital 30 Mg Tablet) 30 mg PO BID [facility] Stop: 04/10/25 21:01 Last Admin: 04/09/25 20:23 Dose: 30 mg Documented By: KEENAN Phenobarbital (Phenobarbital 15 Mg Tablet) 15 mg PO BID [facility] Stop: 04/12/25 21:01 Phenobarbital (Phenobarbital 15 Mg Tablet) 15 mg PO DAILY [facility] Stop: 04/14/25 09:01 Sodium Chloride (0.9 % Sodium Chloride Flush 3 Ml Syringe) 3 ml IVFLUSH QSHIFT [facility] Last Admin: 04/09/25 19:28 Dose: 3 ml Documented By: KEENAN Spironolactone (Spironolactone 25 Mg Tablet) 25 mg PO DAILY [facility]; Protocol Last Admin: 04/09/25 10:53 Dose: 25 mg Documented By: CHRISTOPHE Thiamine HCl (Thiamine Hcl 100 Mg Tablet) 100 mg PO DAILY [facility] Last Admin: 04/09/25 09:08 Dose: 100 mg Documented By: CHRISTOPHE Labs 04/10/25 06:48 04/10/25 06:48 Labs: Laboratory Results - last 24 hr 04/09/25 04/09/25 04/09/25 07:30 12:55 14:37 MCV 99.6 H MCH 35.3 H MCHC 35.4 H RDW 18.5 H Plt Count 57 L MPV 10.2 Absolute Nucleated RBC 0.000 Nucleated RBC % (auto) 0.0 Hold Purple Top SEE NOTE PT 23.0 H INR 2.0 H Anion Gap 14 Estim Creat Clear Calc 99.3 Estimated GFR > 60 Random Glucose 87 Calcium 7.6 L Total Bilirubin 6.0 H AST 162 H ALT 38 H Alkaline Phosphatase 101 Total Protein 6.6 Albumin 2.4 L Stool Occult Blood NEGATIVE Assessment and Plan (1) Cirrhosis: Status: Acute Plan Patient is a 54-year-old female with HTN, alcohol-induced decompensated liver cirrhosis presented with worsening jaundice abdominal swelling and was noted to have severe decompensated liver cirrhosis in the setting of ongoing alcohol use disorder and is being placed on phenobarb protocol, GI consulted for alcohol-induced liver cirrhosis. severe decompensated liver cirrhosis in the setting of ongoing alcohol use disorder Pancytopenia -DVT Clotting disorders -a UD Thrombocytopenia -a UD hyponatremia-beers protamine Budd-Chiari syndrome GI consulted Continue phenobarb protocol Vitamin K for decompensated liver cirrhosis Check electrolytes and replete p.r.n. to goal Patient continues to have hyperammonemia-we will initiate lactulose Initially there was a concern of portal vein thrombosis on ultrasound which was ruled out with a CT scan-likely deemed hepato steatosis Meld score 26-per GI we will continue to monitor and hold off on steroids We will continue lactulose and spironolactone treatment for cirrhosis Bleeding precautions Addiction Medicine consulted Bleeding from the right nose s/p cautery Likely secondary to bleeding diathesis in the setting of decompensated liver cirrhosis Anticoagulation with SCD boots in the setting of pancytopenia and thrombocytopenia Guarded prognosis This note is constructed using voice recognition software. While every effort has been made to ensure accuracy, folding rules printing machine operator errors may have been included. Quality Stroke Does the patient have a stroke diagnosis?: No VTE Prior VTE?: No VTE Risk Level:: Medical - moderate - high VTE Device Contraindication: N/A - Device Ordered VTE Drug Contraindication: N/A - Med Ordered
--- NOTE | 2025-04-10 07:35 | P.CNGI_ITS ---
History of Present Illness Data of Consult Service Date: 04/10/25 Requesting physician: Angela Pritchard Primary Care Provider: Dejan Rod MD HPI Reason for consult: cirrhosis 54yo F with HTN, cirrhosis on CT scan in November 2024 and alcohol abuse who I am seeing for assessment for cirrhosis. Patient was recently dx with cirrhosis by PCP but had continued to drink wine or beer daily despite being told to stop. She now presented with worsening jaundice, abdominal swelling, and leg edema. Denies abdominal pain, and no hematemesis, hematochezia, or melena. No history of diabetes and no family history of liver disease. occ takes meloxicam, ans occasional tylenol for shoudler injusry, denies drugs Initial US in ED with concern for clot in portal veins and hepatic artery stenosis. 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 Labs: Pos ethanol level, anemia, low plts, TB 8 Review of Systems 2 Review of Systems: Constitutional : No Weight loss, No Fever, No Chills ENT/Mouth : No sore throat, No Rhinorrhea- epistaxis Eyes: No Swelling, No Redness Cardiovascular : No Chest Pain, No SOB, + Edema Respiratory : No Cough, No Sputum, No Wheezing Gastrointestinal : see HPI Genitourinary : NO Dysuria, No Urinary Frequency, No Hematuria, No Urgency Musculoskeletal : no joint pain, No Myalgias, No Joint Swelling Skin : No Skin Lesions, No rash Neuro : No Weakness, No Numbness, No Dizziness, No Headache Psych : No Anxiety/Panic, No Depression Heme/Lymph: No Bruising, No Lymphadenopathy Endocrine : No Polyuria, No Polydipsia All other systems reviewed and are negative. [facility] Past Medical History Medical History (Updated 04/10/25 @ 07:44 by Nathan Gonzalez MD) Hemorrhage of skin lesion Hypertension Family History Pertinent family history: no FH of liver dz Social History Social History Household Members: Children Housing: House Do you presently have visiting nurse or other home services: No Alcohol intake: current Alcohol intake frequency: 0-2 drinks per day Alcohol type: beer and wine Patient Tobacco Use Status: Former Tobacco user Tobacco use type: Cigarette Smoked in Last 30 Days: No e-Cigarette/Vaping Use: Never Used Use of substances other than those prescribed or required for medical reasons: No Currently Displaying Signs/Symptoms of Drug Intoxication Withdrawal: No Have you been hit, kicked, punched, or otherwise hurt by someone within the past year? If so, by whom?: No Do you feel safe in your current relationship?: Yes Is there a partner from a previous relationship who is making you feel unsafe now?: No Are you made to feel afraid or neglected: No Advance Directives: Yes Advance Directives Information Provided: Yes Advance Directives on File: No Advance Directives Date on File: 04/08/25 Recently lost weight without trying: No Eating poorly because of decreased appetite: No Nutrition Risks: No Nutritional Risk Patient : No : No Poor oral hygiene: No service: No Meds Allergies Allergy/AdvReac Type Severity Reaction Status Date / Time No Known Allergies Allergy Verified 04/08/25 12:33 Active Medications: Current Medications Acetaminophen (Acetaminophen 325 Mg Tablet) 650 mg PO Q6H PRN PRN Reason: Pain, Mild 1-3,fever,headache Calcium Carbonate (Calcium Carbonate 750 Mg Tab.Chew) 750 mg PO Q4H PRN PRN Reason: Heartburn Ceftriaxone Sodium (Ceftriaxone Sodium 1 Gm Vial) 1 gm IVPUSH Q24H [facility] Last Admin: 04/09/25 16:40 Dose: 1 gm Folic Acid (Folic Acid 1 Mg Tablet) 1 mg PO DAILY [facility] Last Admin: 04/09/25 09:08 Dose: 1 mg Furosemide (Furosemide 40 Mg Tablet) 40 mg PO DAILY [facility]; Protocol Last Admin: 04/09/25 10:51 Dose: 40 mg Magnesium Hydroxide (Milk Of Magnesia 30 Ml Oral.Susp) 30 ml PO DAILY PRN PRN Reason: Constipation Melatonin (Melatonin 3 Mg Tablet) 6 mg PO BEDTIME PRN PRN Reason: Insomnia Multivitamins/Vitamin C (Multivitamin Tablet) 1 tab PO DAILY [facility] Last Admin: 04/09/25 09:08 Dose: 1 tab Ondansetron HCl (Ondansetron Hcl 4 Mg/2 Ml Vial) 4 mg IVPUSH Q4H PRN PRN Reason: Nausea and Vomiting Pharmacy Consult (Consult Rx Etoh Phenob Im/Po) 1 each MISCELLANE ONCE PRN; Protocol PRN Reason: Consult order Phenobarbital (Phenobarbital 30 Mg Tablet) 30 mg PO BID [facility] Stop: 04/10/25 21:01 Last Admin: 04/09/25 20:23 Dose: 30 mg Phenobarbital (Phenobarbital 15 Mg Tablet) 15 mg PO BID [facility] Stop: 04/12/25 21:01 Phenobarbital (Phenobarbital 15 Mg Tablet) 15 mg PO DAILY [facility] Stop: 04/14/25 09:01 Sodium Chloride (0.9 % Sodium Chloride Flush 3 Ml Syringe) 3 ml IVFLUSH QSHIFT [facility] Last Admin: 04/09/25 19:28 Dose: 3 ml Spironolactone (Spironolactone 25 Mg Tablet) 25 mg PO DAILY [facility]; Protocol Last Admin: 04/09/25 10:53 Dose: 25 mg Thiamine HCl (Thiamine Hcl 100 Mg Tablet) 100 mg PO DAILY [facility] Last Admin: 04/09/25 09:08 Dose: 100 mg Home Medications ?Medication ?Instructions ?Recorded ?Confirmed ?Last Taken ?Type meloxicam 15 mg tablet 15 mg PO DAILY PRN Pain 03/2804/08/25 04/08/25 History olmesartan 5 mg tablet 10 mg PO DAILY 04/08/2503/2804/08/25 History Physical Exam 2 Exam: Exam: EXAM: GENERAL: The patient is jaundiced VITAL SIGNS:see workflow HEENT: +icteric sclerae, PERRLA, EOMI. Oropharynx clear. Moist mucous membranes. Conjunctivae appear well perfused. No thyroid mass. CHEST: Chest wall is nontender. HEART: Regular rate and rhythm without murmurs. LUNGS: Clear to auscultation bilaterally. ABDOMEN: Soft, positive bowel sounds, nontender, no organomegaly.no flank tenderness SKIN: No rash, no excessive bruising, petechiae, or purpura. spider angomas NEUROLOGIC: Cranial nerves II-XII intact without motor/sensory deficit. mild asterixis Psych: normal affect Vital Signs: Vital Signs: Last Vital Signs Temp 98.8 F 04/10/25 04:00 Pulse 108 H 04/10/25 04:00 Resp 20 04/10/25 04:00 BP 132/61 04/10/25 04:00 Pulse Ox 96 04/10/25 04:00 O2 Del Method Room Air 04/10/25 04:00 BMI result Body Mass Index 32.4 Results Labs 04/10/25 06:48 04/10/25 06:48 Labs: Short CBC 04/09/25 Range/Units 14:37 WBC 5.9 (4.8-10.8) X10*3/uL Hgb 8.4 L (12.0-16.0) g/dl Hct 23.7 L (37.0-47.0) % Plt Count 57 L (160-400) X10*3/uL BMP 04/09/25 07:30 Sodium 133 L Potassium 4.2 Chloride 101 Carbon Dioxide 22 BUN 9 Creatinine 0.60 Calcium 7.6 L Liver Function 04/09/25 Range/Units 07:30 Total Bilirubin 6.0 H (0.0-1.0) mg/dL AST 162 H (5-31) U/L ALT 38 H (0-31) U/L Alkaline Phosphatase 101 (39-117) U/L Albumin 2.4 L (3.5-5.0) g/dL Assessment and Plan (1) Cirrhosis: Qualifiers: Ascites presence: unspecified Hepatic cirrhosis type: alcoholic cirrhosis Qualified Code(s): K70.30 - Alcoholic cirrhosis of liver without ascites Status: Acute Plan 1/ Acute on chronci liver failure, MELD 26 likely underlying alcoholic cirrhosis as well with alcoholic hepatitis PLAN: 1/ Check liver serologies to r/o metabolic or autoimmune pathology--hep a,b,c neg 2/ high protein di 1.2 g protein/kg/day 3/ encourages on alcohol abstinence 4/ o/p EGD 5/ pancytopenia from liver disease, no active bleeding at tis time, can check iron, b12, folate and give b vitamins, zinc supplement 6/ lactulose titrate to 2-3 soft bowels a day 7/ avoid sedatives, PT for shoulder 8/ hold on steroids for the moment Procedures Date of Service Date of Service: 04/10/25
[2025-04-10 07:36] LABS: Hematocrit 22.0 % (37.0-47.0); Hemoglobin 7.5 g/dl (12.0-16.0); Mean Corpuscular HGB Conc 34.1 g/dl (31.0-35.0); Mean Corpuscular Hemoglobin 34.2 pg (27.0-33.0); Mean Corpuscular Volume 100.5 fL (80.0-98.0); NRBC Abs Auto 0.000 X10*3/uL (0.0-0.012); NRBC Pct Auto 0.0 /100WBC (0.0-0.2); Red Blood Count 2.19 X10*6/uL (4.20-5.50); White Blood Count 6.4 X10*3/uL (4.8-10.8)
[2025-04-10 07:37] LABS: INTERNATIONAL NORM RATIO 2.2 (0.9-1.1); Platelet Count 61 X10*3/uL (160-400); Prothrombin Time 24.7 SEC (10.9-12.4)
[2025-04-10 08:06] LABS: Alanine Aminotransferase 33 U/L (0-31); Albumin Level 2.3 g/dL (3.5-5.0); Alkaline Phosphatase 98 U/L (39-117); Anion Gap 10 (12-20); Aspartate Amino Transferase 138 U/L (5-31); Blood Urea Nitrogen 10 mg/dL (9-16); Calcium 7.5 mg/dL (8.4-10.2); Carbon Dioxide 25 mmol/L (22-29); Chloride 102 mmol/L (96-108); Creatinine Clr Calc Pharmacy 90.3; Estimated Glomerular Filt Rate > 60; Magnesium 1.3 mg/dL (1.6-2.6); Potassium 3.6 mmol/L (3.3-5.1); Sodium 133 mmol/L (135-145); Total Protein 6.3 g/dL (6.5-8.0)
[2025-04-10 08:51] LABS: Ammonia 62 umol/L (13-55)
[2025-04-10] MEDS: Phytonadione (Vit K1) Oral 10 MG/ML AMPUL 5 MG PO (09:31)
[2025-04-10] MEDS: 0.9 % Sodium Chloride Flush 3 ML SYRINGE IVFLUSH ×3 (09:34→20:13)
--- NOTE | 2025-04-10 10:23 | P.PNGS_ITS ---
Subjective Subjective Date of Service: 04/10/25 Interval history: Arterial bleeder from a skin lesion yesterday cauterized with silver nitrate No further bleeding Physical Exam 2 Vital Signs: Vital Signs: Last Vital Signs Temp 98.5 F 04/10/25 07:41 Pulse 100 04/10/25 07:41 Resp 20 04/10/25 07:41 BP 112/63 04/10/25 09:33 Pulse Ox 96 04/10/25 07:41 O2 Del Method Room Air 04/10/25 07:41 BMI result Body Mass Index 32.4 Const: General: comfortable and no acute distress HEENT: Other: No further bleeding from skin lesion, discoloration from silver nitrate noted Objective Data Active Medications Acetaminophen (Acetaminophen 325 Mg Tablet) 650 mg PO Q6H PRN PRN Reason: Pain, Mild 1-3,fever,headache Calcium Carbonate (Calcium Carbonate 750 Mg Tab.Chew) 750 mg PO Q4H PRN PRN Reason: Heartburn Ceftriaxone Sodium (Ceftriaxone Sodium 1 Gm Vial) 1 gm IVPUSH Q24H [facility] Last Admin: 04/09/25 16:40 Dose: 1 gm Documented By: CHRISTOPHE Folic Acid (Folic Acid 1 Mg Tablet) 1 mg PO DAILY [facility] Last Admin: 04/10/25 09:33 Dose: 1 mg Documented By: JARET Furosemide (Furosemide 40 Mg Tablet) 40 mg PO DAILY [facility]; Protocol Last Admin: 04/10/25 09:33 Dose: 40 mg Documented By: JARET Magnesium Hydroxide (Milk Of Magnesia 30 Ml Oral.Susp) 30 ml PO DAILY PRN PRN Reason: Constipation Melatonin (Melatonin 3 Mg Tablet) 6 mg PO BEDTIME PRN PRN Reason: Insomnia Multivitamins/Vitamin C (Multivitamin Tablet) 1 tab PO DAILY [facility] Last Admin: 04/10/25 09:33 Dose: 1 tab Documented By: JARET Ondansetron HCl (Ondansetron Hcl 4 Mg/2 Ml Vial) 4 mg IVPUSH Q4H PRN PRN Reason: Nausea and Vomiting Pharmacy Consult (Consult Rx Etoh Phenob Im/Po) 1 each MISCELLANE ONCE PRN; Protocol PRN Reason: Consult order Phenobarbital (Phenobarbital 30 Mg Tablet) 30 mg PO BID [facility] Stop: 04/10/25 21:01 Last Admin: 04/10/25 09:33 Dose: 30 mg Documented By: JARET Phenobarbital (Phenobarbital 15 Mg Tablet) 15 mg PO BID [facility] Stop: 04/12/25 21:01 Phenobarbital (Phenobarbital 15 Mg Tablet) 15 mg PO DAILY [facility] Stop: 04/14/25 09:01 Sodium Chloride (0.9 % Sodium Chloride Flush 3 Ml Syringe) 3 ml IVFLUSH QSHIFT [facility] Last Admin: 04/10/25 09:34 Dose: 3 ml Documented By: JARET Spironolactone (Spironolactone 25 Mg Tablet) 25 mg PO DAILY [facility]; Protocol Last Admin: 04/10/25 09:33 Dose: 25 mg Documented By: JARET Thiamine HCl (Thiamine Hcl 100 Mg Tablet) 100 mg PO DAILY [facility] Last Admin: 04/10/25 09:33 Dose: 100 mg Documented By: JARET Labs 04/10/25 06:48 04/10/25 06:48 Labs: Laboratory Results - last 24 hr 04/09/25 04/09/25 04/10/25 12:55 14:37 06:48 MCV 99.6 H 100.5 H MCH 35.3 H 34.2 H MCHC 35.4 H 34.1 RDW 18.5 H 18.2 H Plt Count 57 L 61 L MPV 10.2 10.8 Absolute Nucleated RBC 0.000 0.000 Nucleated RBC % (auto) 0.0 0.0 PT 24.7 H INR 2.2 H Anion Gap 10 L Estim Creat Clear Calc 90.3 Estimated GFR > 60 Random Glucose 109 Calcium 7.5 L Magnesium 1.3 L* Total Bilirubin 6.1 H AST 138 H ALT 33 H Alkaline Phosphatase 98 Ammonia Total Protein 6.3 L Albumin 2.3 L Stool Occult Blood NEGATIVE 04/10/25 08:28 MCV MCH MCHC RDW Plt Count MPV Absolute Nucleated RBC Nucleated RBC % (auto) PT INR Anion Gap Estim Creat Clear Calc Estimated GFR Random Glucose Calcium Magnesium Total Bilirubin AST ALT Alkaline Phosphatase Ammonia 62 H Total Protein Albumin Stool Occult Blood Procedures Date of Service Date of Service: 04/10/25 Progress Note: A&P Assessment and plan (1) Hemorrhage of skin lesion: Status: Acute Assessment and Plan: Arterial bleeder cauterized yesterday with silver nitrate No further bleeding I changed dressings and applied Band-Aid Coagulation disorder from liver disease likely contributory to bleeding Rest of care as per hospitalist Okay to apply Band-Aid and change daily Time Spent With Patient Time: Total time managing care of this patient today ____ minutes. Quality Stroke Does the patient have a stroke diagnosis?: No VTE Prior VTE?: No VTE Risk Level:: Medical - moderate - high VTE Device Contraindication: N/A - Device Ordered VTE Drug Contraindication: N/A - Med Ordered
[2025-04-11] VITALS: BP 136/87; PULSE 66; RESP 18; TEMP 36.7; O2SAT 98
[2025-04-11 03:30] VITALS: BP 118/56; PULSE 105; RESP 18; TEMP 36.7; O2SAT 95
[2025-04-11 06:31] LABS: MANUAL DIFF FLAG NO
[2025-04-11 06:51] LABS: Hematocrit 21.7 % (37.0-47.0); Hemoglobin 7.5 g/dl (12.0-16.0); Imm Gran Abs Auto 0.05 X10*3/uL (0.00-0.03); Imm Gran Pct Auto 0.6 % (0.0-0.4); Lymphocytes Absolute Auto 1.8 X10*3/uL (1.2-4.9); Mean Corpuscular HGB Conc 34.6 g/dl (31.0-35.0); Mean Corpuscular Hemoglobin 35.2 pg (27.0-33.0); Mean Corpuscular Volume 101.9 fL (80.0-98.0); NRBC Abs Auto 0.000 X10*3/uL (0.0-0.012); NRBC Pct Auto 0.0 /100WBC (0.0-0.2); Platelet Count 72 X10*3/uL (160-400); Red Blood Count 2.13 X10*6/uL (4.20-5.50); White Blood Count 8.6 X10*3/uL (4.8-10.8)
[2025-04-11 07:02] LABS: Alanine Aminotransferase 30 U/L (0-31); Albumin Level 2.3 g/dL (3.5-5.0); Alkaline Phosphatase 100 U/L (39-117); Anion Gap 11 (12-20); Aspartate Amino Transferase 124 U/L (5-31); Blood Urea Nitrogen 10 mg/dL (9-16); Calcium 7.6 mg/dL (8.4-10.2); Carbon Dioxide 25 mmol/L (22-29); Chloride 102 mmol/L (96-108); Creatinine Clr Calc Pharmacy 96.1; Estimated Glomerular Filt Rate > 60; Potassium 3.5 mmol/L (3.3-5.1); Sodium 134 mmol/L (135-145); Total Protein 6.3 g/dL (6.5-8.0)
[2025-04-11 07:10] VITALS: BP 116/58; PULSE 97; RESP 18; TEMP 37.2; O2SAT 96
--- NOTE | 2025-04-11 07:35 | HO.PM.IMPN ---
Subjective Subjective Date of Service: 04/11/25 Interval History: Patient continues to have plateauing but still significant transaminitis and synthetic liver dysfunction Both daughters were at the bedside Patient reports feeling slightly better-looking forward to getting discharged-I advised her that she is far from being discharged yet and she needs to complete treatment Physical Exam Exam: Exam: General: AOx3, not in acute distress Resp: CTA bilaterally CVS: S1, S2, RRR GI: +BS, NT, protuberant abdomen Psych: Poor insight ,was asking we I go home Vital Signs: Vital Signs: Last Vital Signs Temp 98.8 F 04/10/25 04:00 Pulse 108 H 04/10/25 04:00 Resp 20 04/10/25 04:00 BP 132/61 04/10/25 04:00 Pulse Ox 96 04/10/25 04:00 O2 Del Method Room Air 04/10/25 04:00 BMI result Body Mass Index 32.4 Objective Data Active Medications Acetaminophen (Acetaminophen 325 Mg Tablet) 650 mg PO Q6H PRN PRN Reason: Pain, Mild 1-3,fever,headache Calcium Carbonate (Calcium Carbonate 750 Mg Tab.Chew) 750 mg PO Q4H PRN PRN Reason: Heartburn Ceftriaxone Sodium (Ceftriaxone Sodium 1 Gm Vial) 1 gm IVPUSH Q24H [facility] Last Admin: 04/10/25 15:58 Dose: 1 gm Documented By: JARET Folic Acid (Folic Acid 1 Mg Tablet) 1 mg PO DAILY [facility] Last Admin: 04/10/25 09:33 Dose: 1 mg Documented By: JARET Furosemide (Furosemide 40 Mg Tablet) 40 mg PO DAILY [facility]; Protocol Last Admin: 04/10/25 09:33 Dose: 40 mg Documented By: JARET Lactulose (Lactulose 20 Gm/30 Ml Solution) 10 gm PO BID [facility] Last Admin: 04/10/25 20:13 Dose: 10 gm Documented By: KEENAN Magnesium Hydroxide (Milk Of Magnesia 30 Ml Oral.Susp) 30 ml PO DAILY PRN PRN Reason: Constipation Melatonin (Melatonin 3 Mg Tablet) 6 mg PO BEDTIME PRN PRN Reason: Insomnia Last Admin: 04/11/25 02:29 Dose: 6 mg Documented By: KEENAN Multivitamins/Vitamin C (Multivitamin Tablet) 1 tab PO DAILY [facility] Last Admin: 04/10/25 09:33 Dose: 1 tab Documented By: JARET Ondansetron HCl (Ondansetron Hcl 4 Mg/2 Ml Vial) 4 mg IVPUSH Q4H PRN PRN Reason: Nausea and Vomiting Pharmacy Consult (Consult Rx Etoh Phenob Im/Po) 1 each MISCELLANE ONCE [facility]; Protocol PRN Reason: Consult order Phenobarbital (Phenobarbital 15 Mg Tablet) 15 mg PO BID [facility] Stop: 04/12/25 21:01 Phenobarbital (Phenobarbital 15 Mg Tablet) 15 mg PO DAILY [facility] Stop: 04/14/25 09:01 Sodium Chloride (0.9 % Sodium Chloride Flush 3 Ml Syringe) 3 ml IVFLUSH QSHIFT [facility] Last Admin: 04/10/25 20:13 Dose: 3 ml Documented By: KEENAN Spironolactone (Spironolactone 25 Mg Tablet) 25 mg PO DAILY [facility]; Protocol Last Admin: 04/10/25 09:33 Dose: 25 mg Documented By: JARET Thiamine HCl (Thiamine Hcl 100 Mg Tablet) 100 mg PO DAILY [facility] Last Admin: 04/10/25 09:33 Dose: 100 mg Documented By: JARET Labs 04/11/25 06:21 04/11/25 06:21 Labs: Laboratory Results - last 24 hr 04/10/25 04/10/25 04/11/25 06:48 08:28 06:21 MCV 100.5 H 101.9 H MCH 34.2 H 35.2 H MCHC 34.1 34.6 RDW 18.2 H 18.2 H Plt Count 61 L 72 L MPV 10.8 11.7 Immature Gran % (Auto) 0.6 H Neut % (Auto) 62.8 Lymph % (Auto) 20.7 [place] % (Auto) 12.8 H Eos % (Auto) 2.4 Baso % (Auto) 0.7 Lymph # (Auto) 1.8 [place] # (Auto) 1.1 Eos # (Auto) 0.2 Baso # (Auto) 0.1 Abs Immat Gran (auto) 0.05 H Absolute Neuts (auto) 5.4 Absolute Nucleated RBC 0.000 0.000 Nucleated RBC % (auto) 0.0 0.0 PT 24.7 H INR 2.2 H Anion Gap 10 L 11 L Estim Creat Clear Calc 90.3 96.1 Estimated GFR > 60 > 60 Random Glucose 109 100 Calcium 7.5 L 7.6 L Magnesium 1.3 L* Total Bilirubin 6.1 H 5.9 H AST 138 H 124 H ALT 33 H 30 Alkaline Phosphatase 98 100 Ammonia 62 H Total Protein 6.3 L 6.3 L Albumin 2.3 L 2.3 L Assessment and Plan (1) Cirrhosis: Status: Acute Plan Patient is a 54-year-old female with HTN, alcohol-induced decompensated liver cirrhosis presented with worsening jaundice abdominal swelling and was noted to have severe decompensated liver cirrhosis in the setting of ongoing alcohol use disorder and is being placed on phenobarb protocol, GI consulted for alcohol-induced liver cirrhosis. severe decompensated liver cirrhosis in the setting of ongoing alcohol use disorder Pancytopenia -AUD Clotting disorders -a UD Thrombocytopenia -a UD hyponatremia-beers protamine Budd-Chiari syndrome GI consulted Continue phenobarb protocol Vitamin K for decompensated liver cirrhosis Check electrolytes and replete p.r.n. to goal Patient continues to have hyperammonemia-we have initiated lactulose Initially there was a concern of portal vein thrombosis on ultrasound which was ruled out with a CT scan-likely deemed hepato steatosis Meld score 26-per GI we will continue to monitor and hold off on steroids for now We will continue lactulose and spironolactone treatment for cirrhosis Bleeding precautions Addiction Medicine consulted Bleeding from the right nose s/p cautery Likely secondary to bleeding diathesis in the setting of decompensated liver cirrhosis Anticoagulation with SCD boots in the setting of pancytopenia and thrombocytopenia Guarded prognosis This note is constructed using voice recognition software. While every effort has been made to ensure accuracy, telescope maintenance errors may have been included. Quality Stroke Does the patient have a stroke diagnosis?: No VTE Prior VTE?: No VTE Risk Level:: Medical - moderate - high VTE Device Contraindication: N/A - Device Ordered VTE Drug Contraindication: N/A - Med Ordered
[2025-04-11] MEDS: 0.9 % Sodium Chloride Flush 3 ML SYRINGE IVFLUSH ×3 (08:13→20:20)
[2025-04-11 11:05] VITALS: BP 106/57; PULSE 100; RESP 18; TEMP 36.8; O2SAT 97
--- NOTE | 2025-04-11 15:16 | MHC.CM.PN ---
Per rounds, pt. not yet ready to DC, requiring care for acute cirrhosis.
[2025-04-11 15:19] VITALS: BP 115/59; PULSE 103; RESP 16; TEMP 36.7; O2SAT 97
--- NOTE | 2025-04-11 15:40 | MHC.CLN ---
NUTRITION DIET RX 2 GRAM SODIUM. PER PROVIDER, ENSURE BID TO PROVIDE 700 KCALS, [address] TO MONITOR WEEKLY.
[2025-04-11] MEDS: Phytonadione (Vit K1) Oral 10 MG/ML AMPUL 5 MG PO (16:03)
[2025-04-11 16:09] LABS: Magnesium 1.6 mg/dL (1.6-2.6)
[2025-04-11 16:17] LABS: INTERNATIONAL NORM RATIO 2.2 (0.9-1.1); Prothrombin Time 25.7 SEC (10.9-12.4)
[2025-04-11 19:12] VITALS: BP 135/63; PULSE 94; RESP 18; TEMP 36.5; O2SAT 96
[2025-04-12] VITALS (8 sets, daily range): BP systolic 103–131; BP diastolic 50–63; PULSE 93–99; RESP 16–18; TEMP 36.2–37.1; O2SAT 95–98
[2025-04-12 06:14] LABS: MANUAL DIFF FLAG NO
[2025-04-12 06:42] LABS: Alanine Aminotransferase 25 U/L (0-31); Albumin Level 2.3 g/dL (3.5-5.0); Alkaline Phosphatase 96 U/L (39-117); Anion Gap 10 (12-20); Aspartate Amino Transferase 104 U/L (5-31); Blood Urea Nitrogen 13 mg/dL (9-16); Calcium 7.5 mg/dL (8.4-10.2); Carbon Dioxide 24 mmol/L (22-29); Chloride 103 mmol/L (96-108); Creatinine Clr Calc Pharmacy 79.5; Estimated Glomerular Filt Rate > 60; Magnesium 1.6 mg/dL (1.6-2.6); Potassium 3.5 mmol/L (3.3-5.1); Sodium 133 mmol/L (135-145); Total Protein 6.3 g/dL (6.5-8.0)
[2025-04-12 06:48] LABS: Hematocrit 21.8 % (37.0-47.0); Hemoglobin 7.5 g/dl (12.0-16.0); Imm Gran Abs Auto 0.04 X10*3/uL (0.00-0.03); Imm Gran Pct Auto 0.4 % (0.0-0.4); Lymphocytes Absolute Auto 1.7 X10*3/uL (1.2-4.9); Mean Corpuscular HGB Conc 34.4 g/dl (31.0-35.0); Mean Corpuscular Hemoglobin 35.4 pg (27.0-33.0); Mean Corpuscular Volume 102.8 fL (80.0-98.0); NRBC Abs Auto 0.020 X10*3/uL (0.0-0.012); NRBC Pct Auto 0.2 /100WBC (0.0-0.2); Red Blood Count 2.12 X10*6/uL (4.20-5.50); White Blood Count 9.0 X10*3/uL (4.8-10.8)
[2025-04-12 06:52] LABS: Platelet Count 84 X10*3/uL (160-400)
[2025-04-12 06:56] LABS: INTERNATIONAL NORM RATIO 2.4 (0.9-1.1); Prothrombin Time 27.5 SEC (10.9-12.4)
--- NOTE | 2025-04-12 07:19 | HO.PM.IMPN ---
Subjective Subjective Date of Service: 04/12/25 Interval History: Patient appears significantly better Review of Systems Review of Systems: Yes all other systems are reviewed and are negative Physical Exam Exam: Exam: General: AOx3, not in acute distress Resp: CTA bilaterally CVS: S1, S2, RRR GI: +BS, NT, protuberant abdomen Psych: Limited insight Vital Signs: Vital Signs: Last Vital Signs Temp 97.4 F 04/12/25 03:37 Pulse 99 04/12/25 03:37 Resp 18 04/12/25 03:37 BP 109/59 L 04/12/25 03:37 Pulse Ox 97 04/12/25 03:37 O2 Del Method Room Air 04/12/25 03:37 BMI result Body Mass Index 32.4 Objective Data Active Medications Acetaminophen (Acetaminophen 325 Mg Tablet) 650 mg PO Q6H PRN PRN Reason: Pain, Mild 1-3,fever,headache Calcium Carbonate (Calcium Carbonate 750 Mg Tab.Chew) 750 mg PO Q4H PRN PRN Reason: Heartburn Ceftriaxone Sodium (Ceftriaxone Sodium 1 Gm Vial) 1 gm IVPUSH Q24H [facility] Last Admin: 04/11/25 16:03 Dose: 1 gm Documented By: JARET Folic Acid (Folic Acid 1 Mg Tablet) 1 mg PO DAILY [facility] Last Admin: 04/11/25 08:13 Dose: 1 mg Documented By: JARET Furosemide (Furosemide 40 Mg Tablet) 40 mg PO DAILY [facility]; Protocol Last Admin: 04/11/25 08:13 Dose: 40 mg Documented By: JARET Lactulose (Lactulose 20 Gm/30 Ml Solution) 10 gm PO BID [facility] Last Admin: 04/11/25 20:21 Dose: Not Given Documented By: KEENAN Non-Admin Reason: pt had 4 BMs today Magnesium Hydroxide (Milk Of Magnesia 30 Ml Oral.Susp) 30 ml PO DAILY PRN PRN Reason: Constipation Melatonin (Melatonin 3 Mg Tablet) 6 mg PO BEDTIME PRN PRN Reason: Insomnia Last Admin: 04/11/25 02:29 Dose: 6 mg Documented By: KEENAN Multivitamins/Vitamin C (Multivitamin Tablet) 1 tab PO DAILY [facility] Last Admin: 04/11/25 08:13 Dose: 1 tab Documented By: JARET Ondansetron HCl (Ondansetron Hcl 4 Mg/2 Ml Vial) 4 mg IVPUSH Q4H PRN PRN Reason: Nausea and Vomiting Pharmacy Consult (Consult Rx Etoh Phenob Im/Po) 1 each MISCELLANE ONCE [facility]; Protocol PRN Reason: Consult order Phenobarbital (Phenobarbital 15 Mg Tablet) 15 mg PO BID [facility] Stop: 04/12/25 21:01 Last Admin: 04/11/25 20:20 Dose: 15 mg Documented By: KEENAN Phenobarbital (Phenobarbital 15 Mg Tablet) 15 mg PO DAILY [facility] Stop: 04/14/25 09:01 Sodium Chloride (0.9 % Sodium Chloride Flush 3 Ml Syringe) 3 ml IVFLUSH QSHIFT [facility] Last Admin: 04/11/25 20:20 Dose: 3 ml Documented By: KEENAN Spironolactone (Spironolactone 25 Mg Tablet) 25 mg PO DAILY [facility]; Protocol Last Admin: 04/11/25 08:13 Dose: 25 mg Documented By: JARET Thiamine HCl (Thiamine Hcl 100 Mg Tablet) 100 mg PO DAILY [facility] Last Admin: 04/11/25 08:13 Dose: 100 mg Documented By: JARET Labs 04/12/25 05:45 04/12/25 05:45 Labs: Laboratory Results - last 24 hr 04/11/25 04/11/25 04/12/25 06:21 16:03 05:45 MCV 102.8 H MCH 35.4 H MCHC 34.4 RDW 18.0 H Plt Count 84 L MPV 10.5 Immature Gran % (Auto) 0.4 Neut % (Auto) 64.3 Lymph % (Auto) 19.4 L [place] % (Auto) 12.7 H Eos % (Auto) 2.3 Baso % (Auto) 0.9 Lymph # (Auto) 1.7 [place] # (Auto) 1.1 Eos # (Auto) 0.2 Baso # (Auto) 0.1 Abs Immat Gran (auto) 0.04 H Absolute Neuts (auto) 5.8 Absolute Nucleated RBC 0.020 H Nucleated RBC % (auto) 0.2 PT 25.7 H 27.5 H INR 2.2 H 2.4 H Anion Gap 10 L Estim Creat Clear Calc 79.5 Estimated GFR > 60 Random Glucose 101 Calcium 7.5 L Magnesium 1.6 1.6 Total Bilirubin 5.7 H AST 104 H ALT 25 Alkaline Phosphatase 96 Total Protein 6.3 L Albumin 2.3 L Assessment and Plan (1) Decompensation of cirrhosis of liver: Status: Acute Plan Patient is a 54-year-old female with HTN, alcohol-induced decompensated liver cirrhosis presented with worsening jaundice abdominal swelling and was noted to have severe decompensated liver cirrhosis in the setting of ongoing alcohol use disorder and is being placed on phenobarb protocol, GI consulted for alcohol-induced liver cirrhosis. severe decompensated liver cirrhosis in the setting of ongoing alcohol use disorder Pancytopenia -AUD Clotting disorders -a UD Thrombocytopenia -a UD hyponatremia-beers protamine Budd-Chiari syndrome Hyperammonemia-responding to lactulose Continue phenobarb protocol Vitamin K for decompensated liver cirrhosis Check electrolytes and replete p.r.n. to goal hyperammonemia-we have initiated lactulose , good response, continue and titrate 2 to 3-4 bowel movements per day Initially there was a concern of portal vein thrombosis on ultrasound which was ruled out with a CT scan-likely deemed hepato steatosis Meld score 23-no steroids for now We will continue lactulose and spironolactone treatment for cirrhosis Bleeding precautions Alcohol use disorder Addiction Medicine consulted- naltrexone being initiated tomorrow Bleeding from the right nose s/p cautery Likely secondary to bleeding diathesis in the setting of decompensated liver cirrhosis, controlled Anticoagulation with SCD boots in the setting of pancytopenia and thrombocytopenia Disposition-DC in 2-3 days pending clinical improvement in liver function This note is constructed using voice recognition software. While every effort has been made to ensure accuracy, food and beverage checker errors may have been included. Quality Stroke Does the patient have a stroke diagnosis?: No VTE Prior VTE?: No VTE Risk Level:: Medical - moderate - high VTE Device Contraindication: N/A - Device Ordered VTE Drug Contraindication: N/A - Med Ordered
[2025-04-12] MEDS: Phytonadione (Vit K1) Oral 10 MG/ML AMPUL PO (08:29)
[2025-04-12] MEDS: 0.9 % Sodium Chloride Flush 3 ML SYRINGE IVFLUSH ×3 (08:30→19:24)
[2025-04-12 08:48] LABS: Ammonia 47 umol/L (13-55)
--- NOTE | 2025-04-12 14:13 | MHC.RECOVRN ---
Pt accepted SANDEEP initiation & outpatient REMI treatment appointment at the [facility]. Appointment entered in D/C Summary and is for Friday04/25/2025 @ 15:30.
--- NOTE | 2025-04-12 15:48 | P.PNGS_ITS ---
Subjective Subjective Date of Service: 04/13/25 Interval history: called again for bleeding from the right ala of the nose Physical Exam 2 Vital Signs: Vital Signs: Last Vital Signs Temp 97.1 F 04/12/25 15:17 Pulse 93 04/12/25 15:17 Resp 16 04/12/25 15:17 BP 118/56 L 04/12/25 15:17 Pulse Ox 95 04/12/25 15:17 O2 Del Method Room Air 04/12/25 15:17 BMI result Body Mass Index 32.4 Const: General: comfortable and no acute distress HEENT: Other: small pinpoint arterial bleeder from raw area of right ala of nose Resp: Effort & Inspection: normal respiratory effort Cardio: Rate: regular rate Objective Data Active Medications Acetaminophen (Acetaminophen 325 Mg Tablet) 650 mg PO Q6H PRN PRN Reason: Pain, Mild 1-3,fever,headache Calcium Carbonate (Calcium Carbonate 750 Mg Tab.Chew) 750 mg PO Q4H PRN PRN Reason: Heartburn Folic Acid (Folic Acid 1 Mg Tablet) 1 mg PO DAILY [facility] Last Admin: 04/12/25 08:29 Dose: 1 mg Documented By: JARET Furosemide (Furosemide 40 Mg Tablet) 40 mg PO DAILY [facility]; Protocol Last Admin: 04/12/25 08:29 Dose: 40 mg Documented By: JARET Lactulose (Lactulose 20 Gm/30 Ml Solution) 10 gm PO BID [facility] Last Admin: 04/12/25 08:29 Dose: 10 gm Documented By: JARET Magnesium Hydroxide (Milk Of Magnesia 30 Ml Oral.Susp) 30 ml PO DAILY PRN PRN Reason: Constipation Melatonin (Melatonin 3 Mg Tablet) 6 mg PO BEDTIME PRN PRN Reason: Insomnia Last Admin: 04/11/25 02:29 Dose: 6 mg Documented By: KEENAN Multivitamins/Vitamin C (Multivitamin Tablet) 1 tab PO DAILY [facility] Last Admin: 04/12/25 08:29 Dose: 1 tab Documented By: JARET Naltrexone HCl (Naltrexone Hcl 50 Mg Tablet) 25 mg PO DAILY [facility] Stop: 04/15/25 09:01 Naltrexone HCl (Naltrexone Hcl 50 Mg Tablet) 50 mg PO DAILY [facility] Ondansetron HCl (Ondansetron Hcl 4 Mg/2 Ml Vial) 4 mg IVPUSH Q4H PRN PRN Reason: Nausea and Vomiting Pharmacy Consult (Consult Rx Etoh Phenob Im/Po) 1 each MISCELLANE ONCE PRN; Protocol PRN Reason: Consult order Phenobarbital (Phenobarbital 15 Mg Tablet) 15 mg PO BID [facility] Stop: 04/12/25 21:01 Last Admin: 04/12/25 08:29 Dose: 15 mg Documented By: JARET Phenobarbital (Phenobarbital 15 Mg Tablet) 15 mg PO DAILY [facility] Stop: 04/14/25 09:01 Sodium Chloride (0.9 % Sodium Chloride Flush 3 Ml Syringe) 3 ml IVFLUSH QSHIFT [facility] Last Admin: 04/12/25 08:30 Dose: 3 ml Documented By: JARET Spironolactone (Spironolactone 25 Mg Tablet) 25 mg PO DAILY [facility]; Protocol Last Admin: 04/12/25 08:29 Dose: 25 mg Documented By: JARET Thiamine HCl (Thiamine Hcl 100 Mg Tablet) 100 mg PO DAILY [facility] Last Admin: 04/12/25 08:29 Dose: 100 mg Documented By: JARET Labs 04/13/25 06:31 04/13/25 06:31 Labs: Laboratory Results - last 24 hr 04/11/25 04/11/25 04/12/25 06:21 16:03 05:45 MCV 102.8 H MCH 35.4 H MCHC 34.4 RDW 18.0 H Plt Count 84 L MPV 10.5 Immature Gran % (Auto) 0.4 Neut % (Auto) 64.3 Lymph % (Auto) 19.4 L [place] % (Auto) 12.7 H Eos % (Auto) 2.3 Baso % (Auto) 0.9 Lymph # (Auto) 1.7 [place] # (Auto) 1.1 Eos # (Auto) 0.2 Baso # (Auto) 0.1 Abs Immat Gran (auto) 0.04 H Absolute Neuts (auto) 5.8 Absolute Nucleated RBC 0.020 H Nucleated RBC % (auto) 0.2 PT 25.7 H 27.5 H INR 2.2 H 2.4 H Anion Gap 10 L Estim Creat Clear Calc 79.5 Estimated GFR > 60 Random Glucose 101 Calcium 7.5 L Magnesium 1.6 1.6 Total Bilirubin 5.7 H AST 104 H ALT 25 Alkaline Phosphatase 96 Ammonia Total Protein 6.3 L Albumin 2.3 L 04/12/25 08:27 MCV MCH MCHC RDW Plt Count MPV Immature Gran % (Auto) Neut % (Auto) Lymph % (Auto) [place] % (Auto) Eos % (Auto) Baso % (Auto) Lymph # (Auto) [place] # (Auto) Eos # (Auto) Baso # (Auto) Abs Immat Gran (auto) Absolute Neuts (auto) Absolute Nucleated RBC Nucleated RBC % (auto) PT INR Anion Gap Estim Creat Clear Calc Estimated GFR Random Glucose Calcium Magnesium Total Bilirubin AST ALT Alkaline Phosphatase Ammonia 47 Total Protein Albumin Procedures Date of Service Date of Service: 04/13/25 Procedure Note Procedure Note: Proedure: cauterization with silver nitrate The bleeding area was cleaned and exposed. Two silver nitrate stick were applied. Good hemostasis was achieved. Nonadherent dressings placed. Pt tolerated procedure well Progress Note: A&P Assessment and plan (1) Hemorrhage of skin lesion: Status: Acute Assessment and Plan: arterial bleeder cauterized with silver nitrate good hemostasis achieved nonadherent dressings applied - keep on fair 48 hr correct coagulopathy Time Spent With Patient Time: Total time managing care of this patient today ____ minutes. Quality Stroke Does the patient have a stroke diagnosis?: No VTE Prior VTE?: No VTE Risk Level:: Medical - moderate - high VTE Device Contraindication: N/A - Device Ordered VTE Drug Contraindication: N/A - Med Ordered
--- NOTE | 2025-04-12 16:04 | HO.ADDICT_ITS ---
History of Present Illness Date of Service: 04/12/25 Chief Complaint: portal vein thrombosis Reason for Consult: AUD Sources of Information: patient interviewed and chart reviewed HPI Narrative: Patient is a 54 year old female admitted with cirrhosis, acsites and alcohol withdrawal. Seen by golf starter and ranger and expressed interest in starting SANDEEP. Patient seen in room 475. She is awake, alert, pleasant and engaged in interview. She reports withdrawal sx are resolved, and overall feels better than admission. Alcohol use reviewed and goals related to this. Patient tearful, stating that she realized most of her social activities includes alcohol. Voicing that she will miss this part. Supported patient around this, discussing alternatives to alcohol related activities. She states that she has decreased alcohol use significantly, however was still drinking 2 glasses of wine per night. Discussed how addiction impact decision making as patient was verbalizing frustration with herself for continuing to drink despite the impacts in her life--relationship and health. Labs reviewed GI note reviewed patient appars comfortable, eating without issue. no tremor noted does still appear jaundiced, and somewhat slow moving. Medical Evaluation Reviewed: Yes Review of Systems Constitutional: Reports as per HPI Diagnostics Vital Signs (24Hr): Vital Signs - 24 hr 04/11/25 19:12 04/12/25 00:00 04/12/25 03:37 Temperature 97.7 F 98.0 F 97.4 F Pulse Rate 94 98 99 Respiratory Rate 18 18 18 Blood Pressure 135/63 103/50 L 109/59 L Pulse Oximetry 96 98 97 Oxygen Delivery Method Room Air Room Air Room Air 04/12/25 07:28 04/12/25 08:29 04/12/25 08:29 Temperature 98.7 F Pulse Rate 96 Respiratory Rate 18 Blood Pressure 121/57 L 121/57 L 121/57 L Pulse Oximetry 95 Oxygen Delivery Method Room Air 04/12/25 11:08 04/12/25 15:17 Temperature 98.5 F 97.1 F Pulse Rate 96 93 Respiratory Rate 18 16 Blood Pressure 115/58 L 118/56 L Pulse Oximetry 97 95 Oxygen Delivery Method Room Air Room Air BMI result Body Mass Index 32.4 Labs 04/12/25 05:45 04/12/25 05:45 Labs: Laboratory Results - last 48 hr 04/11/25 04/11/25 04/12/25 06:21 16:03 05:45 WBC 8.6 9.0 RBC 2.13 L 2.12 L Hgb 7.5 L 7.5 L Hct 21.7 L 21.8 L MCV 101.9 H 102.8 H MCH 35.2 H 35.4 H MCHC 34.6 34.4 RDW 18.2 H 18.0 H Plt Count 72 L 84 L MPV 11.7 10.5 Immature Gran % (Auto) 0.6 H 0.4 Neut % (Auto) 62.8 64.3 Lymph % (Auto) 20.7 19.4 L [place] % (Auto) 12.8 H 12.7 H Eos % (Auto) 2.4 2.3 Baso % (Auto) 0.7 0.9 Lymph # (Auto) 1.8 1.7 [place] # (Auto) 1.1 1.1 Eos # (Auto) 0.2 0.2 Baso # (Auto) 0.1 0.1 Abs Immat Gran (auto) 0.05 H 0.04 H Absolute Neuts (auto) 5.4 5.8 Absolute Nucleated RBC 0.000 0.020 H Nucleated RBC % (auto) 0.0 0.2 PT 25.7 H 27.5 H INR 2.2 H 2.4 H Sodium 134 L 133 L Potassium 3.5 3.5 Chloride 102 103 Carbon Dioxide 25 24 Anion Gap 11 L 10 L BUN 10 13 Creatinine 0.62 0.75 Estim Creat Clear Calc 96.1 79.5 Estimated GFR > 60 > 60 Random Glucose 100 101 Calcium 7.6 L 7.5 L Magnesium 1.6 1.6 Total Bilirubin 5.9 H 5.7 H AST 124 H 104 H ALT 30 25 Alkaline Phosphatase 100 96 Ammonia Total Protein 6.3 L 6.3 L Albumin 2.3 L 2.3 L 04/12/25 08:27 WBC RBC Hgb Hct MCV MCH MCHC RDW Plt Count MPV Immature Gran % (Auto) Neut % (Auto) Lymph % (Auto) [place] % (Auto) Eos % (Auto) Baso % (Auto) Lymph # (Auto) [place] # (Auto) Eos # (Auto) Baso # (Auto) Abs Immat Gran (auto) Absolute Neuts (auto) Absolute Nucleated RBC Nucleated RBC % (auto) PT INR Sodium Potassium Chloride Carbon Dioxide Anion Gap BUN Creatinine Estim Creat Clear Calc Estimated GFR Random Glucose Calcium Magnesium Total Bilirubin AST ALT Alkaline Phosphatase Ammonia 47 Total Protein Albumin Imaging Radiology Impressions: ITS Impressions Abdomen Ultrasound 04/08/25 14:51 IMPRESSION: Nonocclusive thrombus in the main portal veins with hepatofugal flow direction. Concerning hemodynamically significant stenosis in the main hepatic artery. Ascites, small to moderate volume. Recommend dedicated triple phase liver CT versus MRI liver. Electronically signed by: Flip Oreilly MD 04/08/2025 03:49 PM EDT RP Doppler Study Ultrasound 04/08/25 14:51 IMPRESSION: Nonocclusive thrombus in the main portal veins with hepatofugal flow direction. Concerning hemodynamically significant stenosis in the main hepatic artery. Ascites, small to moderate volume. Recommend dedicated triple phase liver CT versus MRI liver. Electronically signed by: Flip Oreilly MD 04/08/2025 03:49 PM EDT RP Mental Status Exam Mental Status Exam Patient Appearance: Appropriate Level of Consciousness: Awake, Appropriate and Alert Patient Behavior: Appropriate and Talkative Affect Description: Calm Speech Pattern: Clear Hallucinations: None Delusions: Not Present Thought Process: Intact Thought Content: positive for Intact Judgement: Good Medications Medications Current Medications Acetaminophen (Acetaminophen 325 Mg Tablet) 650 mg PO Q6H PRN PRN Reason: Pain, Mild 1-3,fever,headache Calcium Carbonate (Calcium Carbonate 750 Mg Tab.Chew) 750 mg PO Q4H PRN PRN Reason: Heartburn Folic Acid (Folic Acid 1 Mg Tablet) 1 mg PO DAILY [facility] Last Admin: 04/12/25 08:29 Dose: 1 mg Furosemide (Furosemide 40 Mg Tablet) 40 mg PO DAILY [facility]; Protocol Last Admin: 04/12/25 08:29 Dose: 40 mg Lactulose (Lactulose 20 Gm/30 Ml Solution) 10 gm PO BID [facility] Last Admin: 04/12/25 08:29 Dose: 10 gm Magnesium Hydroxide (Milk Of Magnesia 30 Ml Oral.Susp) 30 ml PO DAILY PRN PRN Reason: Constipation Melatonin (Melatonin 3 Mg Tablet) 6 mg PO BEDTIME PRN PRN Reason: Insomnia Last Admin: 04/11/25 02:29 Dose: 6 mg Multivitamins/Vitamin C (Multivitamin Tablet) 1 tab PO DAILY [facility] Last Admin: 04/12/25 08:29 Dose: 1 tab Naltrexone HCl (Naltrexone Hcl 50 Mg Tablet) 25 mg PO DAILY [facility] Stop: 04/15/25 09:01 Naltrexone HCl (Naltrexone Hcl 50 Mg Tablet) 50 mg PO DAILY [facility] Ondansetron HCl (Ondansetron Hcl 4 Mg/2 Ml Vial) 4 mg IVPUSH Q4H PRN PRN Reason: Nausea and Vomiting Pharmacy Consult (Consult Rx Etoh Phenob Im/Po) 1 each MISCELLANE ONCE [facility]N; Protocol PRN Reason: Consult order Phenobarbital (Phenobarbital 15 Mg Tablet) 15 mg PO BID [facility] Stop: 04/12/25 21:01 Last Admin: 04/12/25 08:29 Dose: 15 mg Phenobarbital (Phenobarbital 15 Mg Tablet) 15 mg PO DAILY [facility] Stop: 04/14/25 09:01 Sodium Chloride (0.9 % Sodium Chloride Flush 3 Ml Syringe) 3 ml IVFLUSH QSHIFT [facility] Last Admin: 04/12/25 08:30 Dose: 3 ml Spironolactone (Spironolactone 25 Mg Tablet) 25 mg PO DAILY [facility]; Protocol Last Admin: 04/12/25 08:29 Dose: 25 mg Thiamine HCl (Thiamine Hcl 100 Mg Tablet) 100 mg PO DAILY [facility] Last Admin: 04/12/25 08:29 Dose: 100 mg Allergies Allergies Allergy/AdvReac Type Severity Reaction Status Date / Time No Known Allergies Allergy Verified 04/08/25 12:33 Assessment & Plan Assessment & Plan (1) Alcohol use disorder: Status: Acute Code(s): F10.90 - Alcohol use, unspecified, uncomplicated Assessment and Plan: * naltrexone 25mg QD X3 days, then increase to 50mg QD (discussed with GI provider--will monitor LFTs outpt) * golf starter and ranger scheduled appt with [facility] for follow up after discharge * Encouraged patient to reach out to recovery supports * provided patient with action plan templates and other recovery resources. Total time managing care of this patient today __40__ minutes. PMFSH Past Medical History Medical History (Updated 04/12/25 @ 14:58 by Nataliya Pal MD) Hemorrhage of skin lesion Hypertension Social History Social History Household Members: Children Housing: House Do you presently have visiting nurse or other home services: No Alcohol intake: current Alcohol intake frequency: 0-2 drinks per day Alcohol type: beer and wine Patient Tobacco Use Status: Former Tobacco user Tobacco use type: Cigarette e-Cigarette/Vaping Use: Never Used Advance Directives Date on File: 04/08/25 service: No
[2025-04-12 16:28] LABS: MANUAL DIFF FLAG NO
[2025-04-12 16:38] LABS: Hematocrit 23.2 % (37.0-47.0); Hemoglobin 8.0 g/dl (12.0-16.0); Imm Gran Abs Auto 0.03 X10*3/uL (0.00-0.03); Imm Gran Pct Auto 0.3 % (0.0-0.4); Lymphocytes Absolute Auto 1.2 X10*3/uL (1.2-4.9); Mean Corpuscular HGB Conc 34.5 g/dl (31.0-35.0); Mean Corpuscular Hemoglobin 35.6 pg (27.0-33.0); Mean Corpuscular Volume 103.1 fL (80.0-98.0); NRBC Abs Auto 0.000 X10*3/uL (0.0-0.012); NRBC Pct Auto 0.0 /100WBC (0.0-0.2); Platelet Count 95 X10*3/uL (160-400); Red Blood Count 2.25 X10*6/uL (4.20-5.50); White Blood Count 9.1 X10*3/uL (4.8-10.8)
[2025-04-12 17:04] LABS: INTERNATIONAL NORM RATIO 2.4 (0.9-1.1); Prothrombin Time 27.1 SEC (10.9-12.4)
--- NOTE | 2025-04-12 19:35 | PM.EVENT ---
Event Note Date of Service: 04/12/25 Event Note: Patient continues to have bleeding from her right nurse-repeated labs INR continues to be high, indicating severe decompensated liver cirrhosis, Gave her p.o. vitamin K, IV vitamin K We will continue to trend daily labs Time Spent With Patient Time: Total time managing care of this patient today ____ minutes.
[2025-04-13 02:53] VITALS: BP 100/55; PULSE 88; RESP 18; TEMP 36.8; O2SAT 95
[2025-04-13 07:02] LABS: MANUAL DIFF FLAG NO
[2025-04-13 07:12] LABS: Hematocrit 21.4 % (37.0-47.0); Hemoglobin 7.3 g/dl (12.0-16.0); Imm Gran Abs Auto 0.04 X10*3/uL (0.00-0.03); Imm Gran Pct Auto 0.4 % (0.0-0.4); Lymphocytes Absolute Auto 1.6 X10*3/uL (1.2-4.9); Mean Corpuscular HGB Conc 34.1 g/dl (31.0-35.0); Mean Corpuscular Hemoglobin 35.3 pg (27.0-33.0); Mean Corpuscular Volume 103.4 fL (80.0-98.0); NRBC Abs Auto 0.000 X10*3/uL (0.0-0.012); NRBC Pct Auto 0.0 /100WBC (0.0-0.2); Platelet Count 94 X10*3/uL (160-400); Red Blood Count 2.07 X10*6/uL (4.20-5.50); White Blood Count 9.3 X10*3/uL (4.8-10.8)
[2025-04-13 07:13] VITALS: BP 110/57; PULSE 92; RESP 18; TEMP 36.9; O2SAT 96
[2025-04-13 07:23] LABS: INTERNATIONAL NORM RATIO 2.3 (0.9-1.1); Prothrombin Time 26.8 SEC (10.9-12.4)
[2025-04-13 07:31] LABS: Alanine Aminotransferase 23 U/L (0-31); Albumin Level 2.3 g/dL (3.5-5.0); Alkaline Phosphatase 101 U/L (39-117); Anion Gap 10 (12-20); Aspartate Amino Transferase 95 U/L (5-31); Blood Urea Nitrogen 16 mg/dL (9-16); Calcium 7.5 mg/dL (8.4-10.2); Carbon Dioxide 25 mmol/L (22-29); Chloride 103 mmol/L (96-108); Creatinine Clr Calc Pharmacy 74.5; Estimated Glomerular Filt Rate > 60; Magnesium 1.7 mg/dL (1.6-2.6); Potassium 3.6 mmol/L (3.3-5.1); Sodium 134 mmol/L (135-145); Total Protein 6.3 g/dL (6.5-8.0)
--- NOTE | 2025-04-13 08:42 | P.PNIM_ITS ---
Subjective Subjective Date of Service: 04/13/25 Interval History: Patient continues to bleed from the R nasal skin bridging Review of Systems Review of Systems: Yes all other systems are reviewed and are negative Physical Exam 2 Exam: Exam: General: AOx3, not in acute distress Resp: CTA bilaterally CVS: S1, S2, RRR GI: +BS, NT, protuberant abdomen Psych: Limited insight Vital Signs: Vital Signs: Last Vital Signs Temp 97.4 F 04/12/25 03:37 Pulse 99 04/12/25 03:37 Resp 18 04/12/25 03:37 BP 109/59 L 04/12/25 03:37 Pulse Ox 97 04/12/25 03:37 O2 Del Method Room Air 04/12/25 03:37 BMI result Body Mass Index 32.4 Objective Data Active Medications Acetaminophen (Acetaminophen 325 Mg Tablet) 650 mg PO Q6H PRN PRN Reason: Pain, Mild 1-3,fever,headache Calcium Carbonate (Calcium Carbonate 750 Mg Tab.Chew) 750 mg PO Q4H PRN PRN Reason: Heartburn Folic Acid (Folic Acid 1 Mg Tablet) 1 mg PO DAILY [facility] Last Admin: 04/12/25 08:29 Dose: 1 mg Documented By: JARET Furosemide (Furosemide 40 Mg Tablet) 40 mg PO DAILY [facility]; Protocol Last Admin: 04/12/25 08:29 Dose: 40 mg Documented By: JARET Lactulose (Lactulose 20 Gm/30 Ml Solution) 10 gm PO BID [facility] Last Admin: 04/12/25 20:39 Dose: Not Given Documented By: [place] Non-Admin Reason: mult bms Magnesium Hydroxide (Milk Of Magnesia 30 Ml Oral.Susp) 30 ml PO DAILY PRN PRN Reason: Constipation Melatonin (Melatonin 3 Mg Tablet) 6 mg PO BEDTIME PRN PRN Reason: Insomnia Last Admin: 04/11/25 02:29 Dose: 6 mg Documented By: KEENAN Multivitamins/Vitamin C (Multivitamin Tablet) 1 tab PO DAILY [facility] Last Admin: 04/12/25 08:29 Dose: 1 tab Documented By: JARET Naltrexone HCl (Naltrexone Hcl 50 Mg Tablet) 25 mg PO DAILY [facility] Stop: 04/15/25 09:01 Naltrexone HCl (Naltrexone Hcl 50 Mg Tablet) 50 mg PO DAILY [facility] Ondansetron HCl (Ondansetron Hcl 4 Mg/2 Ml Vial) 4 mg IVPUSH Q4H PRN PRN Reason: Nausea and Vomiting Pharmacy Consult (Consult Rx Etoh Phenob Im/Po) 1 each MISCELLANE ONCE [facility]; Protocol PRN Reason: Consult order Phenobarbital (Phenobarbital 15 Mg Tablet) 15 mg PO DAILY [facility] Stop: 04/14/25 09:01 Sodium Chloride (0.9 % Sodium Chloride Flush 3 Ml Syringe) 3 ml IVFLUSH QSHIFT [facility] Last Admin: 04/12/25 19:24 Dose: 3 ml Documented By: [place] Spironolactone (Spironolactone 25 Mg Tablet) 25 mg PO DAILY [facility]; Protocol Last Admin: 04/12/25 08:29 Dose: 25 mg Documented By: JARET Thiamine HCl (Thiamine Hcl 100 Mg Tablet) 100 mg PO DAILY [facility] Last Admin: 04/12/25 08:29 Dose: 100 mg Documented By: JARET Labs 04/13/25 06:31 04/13/25 06:31 Labs: Laboratory Results - last 24 hr 04/12/25 04/12/25 04/13/25 08:27 16:13 06:31 MCV 103.1 H 103.4 H MCH 35.6 H 35.3 H MCHC 34.5 34.1 RDW 18.0 H 18.1 H Plt Count 95 L 94 L MPV 11.0 9.9 Immature Gran % (Auto) 0.3 0.4 Neut % (Auto) 70.0 64.7 Lymph % (Auto) 12.6 L 17.2 L [place] % (Auto) 14.9 H 14.2 H Eos % (Auto) 1.4 2.6 Baso % (Auto) 0.8 0.9 Lymph # (Auto) 1.2 1.6 [place] # (Auto) 1.4 H 1.3 H Eos # (Auto) 0.1 0.2 Baso # (Auto) 0.1 0.1 Abs Immat Gran (auto) 0.03 0.04 H Absolute Neuts (auto) 6.4 6.0 Absolute Nucleated RBC 0.000 0.000 Nucleated RBC % (auto) 0.0 0.0 PT 27.1 H 26.8 H INR 2.4 H 2.3 H Anion Gap 10 L Estim Creat Clear Calc 74.5 Estimated GFR > 60 Random Glucose 102 Calcium 7.5 L Magnesium 1.7 Total Bilirubin 6.0 H AST 95 H ALT 23 Alkaline Phosphatase 101 Ammonia 47 Total Protein 6.3 L Albumin 2.3 L Assessment and Plan (1) Decompensation of cirrhosis of liver: Status: Acute Plan Patient is a 54-year-old female with HTN, alcohol-induced decompensated liver cirrhosis presented with worsening jaundice abdominal swelling and was noted to have severe decompensated liver cirrhosis in the setting of ongoing alcohol use disorder and is being placed on phenobarb protocol, GI consulted for alcohol- induced liver cirrhosis. severe decompensated liver cirrhosis in the setting of ongoing alcohol use disorder - poor recovery Pancytopenia -AUD Clotting disorders -a UD Thrombocytopenia -a UD hyponatremia-beers protamine Budd-Chiari syndrome Hyperammonemia-responding to lactulose Completed phenobarb protocol Vitamin K for decompensated liver cirrhosis Check electrolytes and replete p.r.n. to goal hyperammonemia-continue lactulose , good response, continue and titrate 2 to 3-4 bowel movements per day Initially there was a concern of portal vein thrombosis on ultrasound which was ruled out with a CT scan-likely deemed hepato steatosis Meld score 23-no steroids for now We will continue lactulose and spironolactone treatment for cirrhosis Bleeding precautions Alcohol use disorder Addiction Medicine consulted- naltrexone being initiated tomorrow Bleeding from the right nose s/p cautery Likely secondary to bleeding diathesis and right skin trauma in the setting of decompensated liver cirrhosis, continues to bleed intermittently Anticoagulation with SCD boots in the setting of pancytopenia and thrombocytopenia Disposition-DC in 2-3 days pending clinical improvement in liver function This note is constructed using voice recognition software. While every effort has been made to ensure accuracy, tripper errors may have been included. Patient continues to need hospitalization given poor response to medical therapy of decompensated liver cirrhosis Quality Stroke Does the patient have a stroke diagnosis?: No VTE Prior VTE?: No VTE Risk Level:: Medical - moderate - high VTE Device Contraindication: N/A - Device Ordered VTE Drug Contraindication: N/A - Med Ordered
[2025-04-13] MEDS: Phytonadione (Vit K1) Oral 10 MG/ML AMPUL PO (09:36)
[2025-04-13] MEDS: 0.9 % Sodium Chloride Flush 3 ML SYRINGE IVFLUSH ×3 (09:58→20:37)
[2025-04-13 11:13] VITALS: BP 114/59; PULSE 93; RESP 18; TEMP 37.1; O2SAT 95
--- NOTE | 2025-04-13 12:07 | MHC.CM.PN ---
Per MD rounds patient is not medically cleared to discharge. Discharge is anticipated 1-2 days. DP Home self care. She will arrange for a ride home at discharge.
--- NOTE | 2025-04-13 14:54 | MHC.RECOVRN ---
TW met [facility] pt to offer continued support and education related to AUD. On approach pt was laying in bed, watching TV. Pt denies withdrawal symptoms and reports feeling a lot better . Discussed mourning the loss of alcohol and spoke at length about establishing new routines and coping skills such as sitting in a different spot while in the living room and exploring craft ideas and new recipes to occupy her spare time. Pt states she has 2 female friends that she drinks with but reports they would be very supportive of her not drinking. Pt reports she is comfortable telling them she will no longer be consuming alcohol in order to strengthen her support. Pt reports visiting the same restaurants frequently and reports feeling fearful that if she returns, the building construction ironworker will approach and say, Do you want your regular? and being unsure how to answer. TW offered suggestions such as, I have a new regular , I've decided to no longer drink alcohol or not today as potential responses. Pt verbally expressed her appreciation of the support from the [facility] team TW available for further support and resources as needed.
[2025-04-13 15:44] VITALS: BP 117/58; PULSE 89; RESP 18; TEMP 36.7; O2SAT 99
[2025-04-13 19:11] VITALS: BP 114/62; PULSE 93; RESP 18; TEMP 36.3; O2SAT 97
[2025-04-13 23:35] VITALS: BP 122/62; PULSE 108; RESP 18; TEMP 36.6; O2SAT 96
[2025-04-14 03:47] VITALS: BP 103/54; PULSE 109; RESP 18; TEMP 36.3; O2SAT 95
[2025-04-14 06:38] LABS: MANUAL DIFF FLAG NO
[2025-04-14 06:55] LABS: Hematocrit 22.3 % (37.0-47.0); Hemoglobin 7.6 g/dl (12.0-16.0); Imm Gran Abs Auto 0.05 X10*3/uL (0.00-0.03); Imm Gran Pct Auto 0.5 % (0.0-0.4); Lymphocytes Absolute Auto 1.6 X10*3/uL (1.2-4.9); Mean Corpuscular HGB Conc 34.1 g/dl (31.0-35.0); Mean Corpuscular Hemoglobin 35.2 pg (27.0-33.0); Mean Corpuscular Volume 103.2 fL (80.0-98.0); NRBC Abs Auto 0.000 X10*3/uL (0.0-0.012); NRBC Pct Auto 0.0 /100WBC (0.0-0.2); Platelet Count 112 X10*3/uL (160-400); Red Blood Count 2.16 X10*6/uL (4.20-5.50); White Blood Count 9.7 X10*3/uL (4.8-10.8)
[2025-04-14 07:04] LABS: Alanine Aminotransferase 19 U/L (0-31); Albumin Level 2.2 g/dL (3.5-5.0); Alkaline Phosphatase 86 U/L (39-117); Anion Gap 9 (12-20); Aspartate Amino Transferase 84 U/L (5-31); Blood Urea Nitrogen 15 mg/dL (9-16); Calcium 7.7 mg/dL (8.4-10.2); Carbon Dioxide 27 mmol/L (22-29); Chloride 102 mmol/L (96-108); Creatinine Clr Calc Pharmacy 91.6; Estimated Glomerular Filt Rate > 60; Magnesium 1.7 mg/dL (1.6-2.6); Potassium 3.7 mmol/L (3.3-5.1); Sodium 134 mmol/L (135-145); Total Protein 6.3 g/dL (6.5-8.0)
[2025-04-14 07:05] LABS: INTERNATIONAL NORM RATIO 2.2 (0.9-1.1); Prothrombin Time 25.8 SEC (10.9-12.4)
[2025-04-14 07:20] VITALS: BP 123/72; PULSE 108; RESP 18; TEMP 37.1; O2SAT 96
--- NOTE | 2025-04-14 08:01 | HO.PM.IMPN ---
Subjective Subjective Date of Service: 04/14/25 Interval History: Continues to have decompensated liver cirrhosis Review of Systems Review of Systems: Yes all other systems are reviewed and are negative Physical Exam Exam: Exam: General: AOx3, not in acute distress Resp: CTA bilaterally CVS: S1, S2, RRR GI: +BS, NT, protuberant abdomen Psych: Limited insight Vital Signs: Vital Signs: Last Vital Signs Temp 98.8 F 04/14/25 07:20 Pulse 108 H 04/14/25 07:20 Resp 18 04/14/25 07:20 BP 123/72 04/14/25 07:20 Pulse Ox 96 04/14/25 07:20 O2 Del Method Room Air 04/14/25 07:20 BMI result Body Mass Index 32.4 Objective Data Active Medications Acetaminophen (Acetaminophen 325 Mg Tablet) 650 mg PO Q6H PRN PRN Reason: Pain, Mild 1-3,fever,headache Calcium Carbonate (Calcium Carbonate 750 Mg Tab.Chew) 750 mg PO Q4H PRN PRN Reason: Heartburn Folic Acid (Folic Acid 1 Mg Tablet) 1 mg PO DAILY [facility] Last Admin: 04/13/25 09:35 Dose: 1 mg Documented By: IRAIDA Furosemide (Furosemide 40 Mg Tablet) 40 mg PO DAILY [facility]; Protocol Last Admin: 04/13/25 09:35 Dose: 40 mg Documented By: IRAIDA Lactulose (Lactulose 20 Gm/30 Ml Solution) 10 gm PO BID [facility] Last Admin: 04/13/25 20:37 Dose: Not Given Documented By: CHRIS Non-Admin Reason: Patient Refused Magnesium Hydroxide (Milk Of Magnesia 30 Ml Oral.Susp) 30 ml PO DAILY PRN PRN Reason: Constipation Melatonin (Melatonin 3 Mg Tablet) 6 mg PO BEDTIME PRN PRN Reason: Insomnia Last Admin: 04/11/25 02:29 Dose: 6 mg Documented By: KEENAN Multivitamins/Vitamin C (Multivitamin Tablet) 1 tab PO DAILY [facility] Last Admin: 04/13/25 09:35 Dose: 1 tab Documented By: IRAIDA Naltrexone HCl (Naltrexone Hcl 50 Mg Tablet) 25 mg PO DAILY [facility] Stop: 04/15/25 09:01 Last Admin: 04/13/25 09:56 Dose: 25 mg Documented By: IRAIDA Naltrexone HCl (Naltrexone Hcl 50 Mg Tablet) 50 mg PO DAILY [facility] Ondansetron HCl (Ondansetron Hcl 4 Mg/2 Ml Vial) 4 mg IVPUSH Q4H PRN PRN Reason: Nausea and Vomiting Pharmacy Consult (Consult Rx Etoh Phenob Im/Po) 1 each MISCELLANE ONCE PRN; Protocol PRN Reason: Consult order Phenobarbital (Phenobarbital 15 Mg Tablet) 15 mg PO DAILY [facility] Stop: 04/14/25 09:01 Last Admin: 04/13/25 09:34 Dose: 15 mg Documented By: IRAIDA Sodium Chloride (0.9 % Sodium Chloride Flush 3 Ml Syringe) 3 ml IVFLUSH QSHIFT [facility] Last Admin: 04/13/25 20:37 Dose: 3 ml Documented By: FOGARTB Spironolactone (Spironolactone 25 Mg Tablet) 25 mg PO DAILY [facility]; Protocol Last Admin: 04/13/25 09:35 Dose: 25 mg Documented By: IRAIDA Thiamine HCl (Thiamine Hcl 100 Mg Tablet) 100 mg PO DAILY [facility] Last Admin: 04/13/25 09:35 Dose: 100 mg Documented By: IRAIDA Labs 04/14/25 06:06 04/14/25 06:06 Labs: Laboratory Results - last 24 hr 04/13/25 04/14/25 09:34 06:06 MCV 103.2 H MCH 35.2 H MCHC 34.1 RDW 16.9 H Plt Count 112 L MPV 10.7 Immature Gran % (Auto) 0.5 H Neut % (Auto) 64.6 Lymph % (Auto) 16.9 L [place] % (Auto) 13.7 H Eos % (Auto) 3.5 Baso % (Auto) 0.8 Lymph # (Auto) 1.6 [place] # (Auto) 1.3 H Eos # (Auto) 0.3 Baso # (Auto) 0.1 Abs Immat Gran (auto) 0.05 H Absolute Neuts (auto) 6.3 Absolute Nucleated RBC 0.000 Nucleated RBC % (auto) 0.0 PT 25.8 H INR 2.2 H Anion Gap 9 L Estim Creat Clear Calc 91.6 Estimated GFR > 60 Random Glucose 98 Calcium 7.7 L Magnesium 1.7 Total Bilirubin 8.1 H AST 84 H ALT 19 Alkaline Phosphatase 86 Total Protein 6.3 L Albumin 2.2 L Blood Type A Positive Antibody Screen NEGATIVE Assessment and Plan (1) Decompensation of cirrhosis of liver: Status: Acute Plan Patient is a 54-year-old female with HTN, alcohol-induced decompensated liver cirrhosis presented with worsening jaundice abdominal swelling and was noted to have severe decompensated liver cirrhosis in the setting of ongoing alcohol use disorder and is being placed on phenobarb protocol, GI consulted for alcohol-induced liver cirrhosis. severe decompensated liver cirrhosis in the setting of ongoing alcohol use disorder - poor recovery Pancytopenia -AUD Clotting disorders -a UD, Thrombocytopenia -a UD hyponatremia-beers protamine Budd-Chiari syndrome Hyperammonemia-responding to lactulose s/p phenobarb protocol Vitamin K for decompensated liver cirrhosis Check electrolytes and replete p.r.n. to goal hyperammonemia-continue lactulose , good response, continue and titrate 2 to 3-4 bowel movements per day Initially there was a concern of portal vein thrombosis on ultrasound which was ruled out with a CT scan-likely deemed hepato steatosis Meld score 23-no steroids for now We will continue lactulose and spironolactone treatment for cirrhosis Bleeding precautions Alcohol use disorder Addiction Medicine consulted- naltrexone initiated from 04/14/25 Bleeding from the right nose s/p cautery Likely secondary to bleeding diathesis and right skin trauma in the setting of decompensated liver cirrhosis, continues to bleed intermittently Anticoagulation with SCD boots in the setting of pancytopenia and thrombocytopenia Disposition-DC in 2-3 days pending clinical improvement in liver function This note is constructed using voice recognition software. While every effort has been made to ensure accuracy, broomcorn thresher errors may have been included. Patient continues to need hospitalization given poor response to medical therapy of decompensated liver cirrhosis Quality Stroke Does the patient have a stroke diagnosis?: No VTE Prior VTE?: No VTE Risk Level:: Medical - moderate - high VTE Device Contraindication: N/A - Device Ordered VTE Drug Contraindication: N/A - Med Ordered
[2025-04-14] MEDS: 0.9 % Sodium Chloride Flush 3 ML SYRINGE IVFLUSH ×2 (09:05→19:56)
[2025-04-14 10:59] VITALS: BP 116/64; PULSE 84; RESP 18; TEMP 37.1; O2SAT 95
[2025-04-14 16:00] VITALS: BP 105/55; PULSE 92; RESP 18; TEMP 37.1; O2SAT 96
[2025-04-14 20:00] VITALS: BP 117/60; PULSE 91; RESP 20; TEMP 36.9; O2SAT 97
[2025-04-14 20:55] VITALS: BMI 33.1
[2025-04-14 23:37] VITALS: BP 115/58; PULSE 90; RESP 20; TEMP 37.1; O2SAT 96
[2025-04-15 03:27] VITALS: BP 136/61; PULSE 95; RESP 20; TEMP 37.3; O2SAT 96
[2025-04-15 05:48] LABS: MANUAL DIFF FLAG NO
[2025-04-15 06:01] LABS: Hematocrit 21.4 % (37.0-47.0); Hemoglobin 7.2 g/dl (12.0-16.0); Imm Gran Abs Auto 0.06 X10*3/uL (0.00-0.03); Imm Gran Pct Auto 0.7 % (0.0-0.4); Lymphocytes Absolute Auto 1.7 X10*3/uL (1.2-4.9); Mean Corpuscular HGB Conc 33.6 g/dl (31.0-35.0); Mean Corpuscular Hemoglobin 35.1 pg (27.0-33.0); Mean Corpuscular Volume 104.4 fL (80.0-98.0); NRBC Abs Auto 0.000 X10*3/uL (0.0-0.012); NRBC Pct Auto 0.0 /100WBC (0.0-0.2); Platelet Count 124 X10*3/uL (160-400); Red Blood Count 2.05 X10*6/uL (4.20-5.50); White Blood Count 8.9 X10*3/uL (4.8-10.8)
[2025-04-15 06:03] LABS: INTERNATIONAL NORM RATIO 2.2 (0.9-1.1); Prothrombin Time 25.0 SEC (10.9-12.4)
[2025-04-15 06:18] LABS: Alanine Aminotransferase 20 U/L (0-31); Albumin Level 2.2 g/dL (3.5-5.0); Alkaline Phosphatase 115 U/L (39-117); Anion Gap 8 (12-20); Aspartate Amino Transferase 75 U/L (5-31); Blood Urea Nitrogen 16 mg/dL (9-16); Calcium 7.5 mg/dL (8.4-10.2); Carbon Dioxide 25 mmol/L (22-29); Chloride 101 mmol/L (96-108); Creatinine Clr Calc Pharmacy 81.4; Estimated Glomerular Filt Rate > 60; Magnesium 1.7 mg/dL (1.6-2.6); Potassium 3.4 mmol/L (3.3-5.1); Sodium 131 mmol/L (135-145); Total Protein 6.0 g/dL (6.5-8.0)
[2025-04-15 07:08] VITALS: BP 122/66; PULSE 94; RESP 17; TEMP 36.2; O2SAT 97
--- NOTE | 2025-04-15 07:36 | P.PNIM_ITS ---
Subjective Subjective Date of Service: 04/15/25 Physical Exam 2 Vital Signs: Vital Signs: Last Vital Signs Temp 97.2 F 04/15/25 07:08 Pulse 94 04/15/25 07:08 Resp 17 04/15/25 07:08 BP 122/66 04/15/25 07:08 Pulse Ox 97 04/15/25 07:08 O2 Del Method Room Air 04/15/25 07:08 BMI result Body Mass Index 33.1 Objective Data Active Medications Acetaminophen (Acetaminophen 325 Mg Tablet) 650 mg PO Q6H PRN PRN Reason: Pain, Mild 1-3,fever,headache Calcium Carbonate (Calcium Carbonate 750 Mg Tab.Chew) 750 mg PO Q4H PRN PRN Reason: Heartburn Folic Acid (Folic Acid 1 Mg Tablet) 1 mg PO DAILY [facility] Last Admin: 04/14/25 09:04 Dose: 1 mg Documented By: IRAIDA Furosemide (Furosemide 40 Mg Tablet) 40 mg PO DAILY [facility]; Protocol Last Admin: 04/14/25 09:03 Dose: 40 mg Documented By: IRAIDA Lactulose (Lactulose 20 Gm/30 Ml Solution) 10 gm PO BID [facility] Last Admin: 04/14/25 19:59 Dose: Not Given Documented By: VIVIANA Non-Admin Reason: Patient Refused Magnesium Hydroxide (Milk Of Magnesia 30 Ml Oral.Susp) 30 ml PO DAILY PRN PRN Reason: Constipation Melatonin (Melatonin 3 Mg Tablet) 6 mg PO BEDTIME PRN PRN Reason: Insomnia Last Admin: 04/11/25 02:29 Dose: 6 mg Documented By: KEENAN Multivitamins/Vitamin C (Multivitamin Tablet) 1 tab PO DAILY [facility] Last Admin: 04/14/25 09:02 Dose: 1 tab Documented By: IRAIDA Naltrexone HCl (Naltrexone Hcl 50 Mg Tablet) 25 mg PO DAILY [facility] Stop: 04/15/25 09:01 Last Admin: 04/14/25 09:03 Dose: 25 mg Documented By: IRAIDA Naltrexone HCl (Naltrexone Hcl 50 Mg Tablet) 50 mg PO DAILY [facility] Ondansetron HCl (Ondansetron Hcl 4 Mg/2 Ml Vial) 4 mg IVPUSH Q4H PRN PRN Reason: Nausea and Vomiting Pharmacy Consult (Consult Rx Etoh Phenob Im/Po) 1 each MISCELLANE ONCE PRN; Protocol PRN Reason: Consult order Sodium Chloride (0.9 % Sodium Chloride Flush 3 Ml Syringe) 3 ml IVFLUSH QSHIFT [facility] Last Admin: 04/14/25 19:56 Dose: 3 ml Documented By: VIVIANA Spironolactone (Spironolactone 25 Mg Tablet) 25 mg PO DAILY [facility]; Protocol Last Admin: 04/14/25 09:03 Dose: 25 mg Documented By: IRAIDA Thiamine HCl (Thiamine Hcl 100 Mg Tablet) 100 mg PO DAILY [facility] Last Admin: 04/14/25 09:04 Dose: 100 mg Documented By: IRAIDA Labs 04/15/25 05:33 04/15/25 05:33 Labs: Laboratory Results - last 24 hr 04/15/25 05:33 MCV 104.4 H MCH 35.1 H MCHC 33.6 RDW 16.8 H Plt Count 124 L MPV 10.5 Immature Gran % (Auto) 0.7 H Neut % (Auto) 59.6 Lymph % (Auto) 18.5 L [place] % (Auto) 15.8 H Eos % (Auto) 3.9 Baso % (Auto) 1.5 Lymph # (Auto) 1.7 [place] # (Auto) 1.4 H Eos # (Auto) 0.4 Baso # (Auto) 0.1 Abs Immat Gran (auto) 0.06 H Absolute Neuts (auto) 5.3 Absolute Nucleated RBC 0.000 Nucleated RBC % (auto) 0.0 PT 25.0 H INR 2.2 H Anion Gap 8 L Estim Creat Clear Calc 81.4 Estimated GFR > 60 Random Glucose 106 Calcium 7.5 L Magnesium 1.7 Total Bilirubin 5.6 H AST 75 H ALT 20 Alkaline Phosphatase 115 Total Protein 6.0 L Albumin 2.2 L Quality Stroke Does the patient have a stroke diagnosis?: No VTE Prior VTE?: No VTE Risk Level:: Medical - moderate - high VTE Device Contraindication: N/A - Device Ordered VTE Drug Contraindication: N/A - Med Ordered
[2025-04-15] MEDS: Phytonadione (Vit K1) Oral 10 MG/ML AMPUL PO (08:11)
[2025-04-15] MEDS: 0.9 % Sodium Chloride Flush 3 ML SYRINGE IVFLUSH (08:17)
[2025-04-15 11:06] VITALS: BP 124/61; PULSE 95; RESP 17; TEMP 36.4; O2SAT 96
--- NOTE | 2025-04-15 11:31 | MHC.CM.PN ---
Per rounds, pt. requires 1-2 more days acute care to treat decompensated liver cirrhosis.
[2025-04-15 15:10] VITALS: BP 113/65; PULSE 92; RESP 18; TEMP 36.2; O2SAT 99
--- NOTE | 2025-04-15 15:41 | PM.DS ---
DS: Providers Provider Date of Service: 04/15/25 Date of admission: 04/08/25 16:28 Date of discharge: 04/15/25 Primary care physician: Dejan Rod MD Consults: 04/08/25 16:02 Consult to Gastroenterology Routine Consulting Provider: [facility] [place] Gastroenterology Services Reason for consultation: portal vein thrombosis, new cirr 04/08/25 16:28 Addiction Medicine Provider Routine Consulting Provider: Addiction Covering Reason for consultation: etoh 04/09/25 17:04 Consult to General Surgery Routine Consulting Provider: [facility] [place] General Surgeons Reason for consultation: persistent external bleed on right side of nose 04/10/25 08:09 Addiction Medicine Provider Routine Consulting Provider: Addiction [facility] Reason for consultation: AUD DS: Diagnosis Discharge Diagnosis (1) Decompensation of cirrhosis of liver: Status: Acute DS: Summary Hospital Course Hospital Course: severe decompensated liver cirrhosis in the setting of ongoing alcohol use disorder - poor recovery we will likely be months to years Pancytopenia -AUD Clotting disorders -a UD, Thrombocytopenia -a UD hyponatremia-beers protamine Budd-Chiari syndrome Hyperammonemia-responding to lactulose Patient is a 54-year-old female with HTN, alcohol-induced decompensated liver cirrhosis presented with worsening jaundice abdominal swelling and was noted to have severe decompensated liver cirrhosis in the setting of ongoing alcohol use disorder and was placed on phenobarb protocol, GI consulted for alcohol-induced liver cirrhosis. She is s/p phenobarb protocol , continued to require multiple doses of IV and p.o. vitamin K with very slow/poor response. Meld score 23-no steroids for now. Electrolytes were being checked and repleted to goal. Monitored on telemetry. She was also noted to have hyperammonemia for which lactulose was initiated with good response. Counseled extensively about alcohol cessation, acamprosate was initiated this admission, and advised that decompensated liver cirrhosis appears to be very poorly responding and we will not be a candidate for liver transplant if she does not refrain from alcohol. We will need VNA services, checking INR daily, continue vitamin K 10 mg daily until she sees her PCP and GI outpatient. Initially there was a concern of portal vein thrombosis on ultrasound on admission which was ruled out with a CT scan-likely deemed hepato steatosis We will continue lactulose and spironolactone treatment for cirrhosis Bleeding precautions We will need outpatient GI follow-up and the scanning if noted to have worsening clinical status or jaundice. Alcohol use disorder Addiction Medicine consulted- naltrexone initiated from 04/14/25 Bleeding from the right nose s/p cautery She had multiple episodes of bleeding from her right lateral nose, s/p trauma from picking ,Likely secondary to bleeding diathesis and right skin trauma in the setting of decompensated liver cirrhosis, continues to bleed intermittently requiring cautery and multiple doses of IV vitamin K Anticoagulation with SCD boots in the setting of pancytopenia and thrombocytopenia This note is constructed using voice recognition software. While every effort has been made to ensure accuracy, psychiatric assistant errors may have been included. Time spent discussing smoking cessation with patient: more than 10 minutes Status at Discharge Functional status at discharge: independent ambulation Overall status at discharge: patient is not back to baseline (We will take months to years) Time Attestation Discharge Coordination Time (in mins): 35 Quality: Safe Use of Opioids Does Pt have an Active Cancer Diagnosis on the Problem List?: No Quality: Stroke Does the patient have a stroke diagnosis?: No Physical Exam Exam: Exam: General: AOx3, not in acute distress Resp: CTA bilaterally CVS: S1, S2, RRR GI: +BS, NT, protuberant abdomen Psych: Limited insight Vital Signs: Vital Signs: Last Vital Signs Temp 97.1 F 04/15/25 15:10 Pulse 92 04/15/25 15:10 Resp 18 04/15/25 15:10 BP 113/65 04/15/25 15:10 Pulse Ox 99 04/15/25 15:10 O2 Del Method Room Air 04/15/25 15:10 BMI result Body Mass Index 33.1 DS: Data Data Completed and Pending Labs on day of discharge: Laboratory Results - last 24 hr 04/15/25 05:33 WBC 8.9 RBC 2.05 L Hgb 7.2 L Hct 21.4 L MCV 104.4 H MCH 35.1 H MCHC 33.6 RDW 16.8 H Plt Count 124 L MPV 10.5 Immature Gran % (Auto) 0.7 H Neut % (Auto) 59.6 Lymph % (Auto) 18.5 L [place] % (Auto) 15.8 H Eos % (Auto) 3.9 Baso % (Auto) 1.5 Lymph # (Auto) 1.7 [place] # (Auto) 1.4 H Eos # (Auto) 0.4 Baso # (Auto) 0.1 Abs Immat Gran (auto) 0.06 H Absolute Neuts (auto) 5.3 Absolute Nucleated RBC 0.000 Nucleated RBC % (auto) 0.0 PT 25.0 H INR 2.2 H Sodium 131 L Potassium 3.4 Chloride 101 Carbon Dioxide 25 Anion Gap 8 L BUN 16 Creatinine 0.74 Estim Creat Clear Calc 81.4 Estimated GFR > 60 Random Glucose 106 Calcium 7.5 L Magnesium 1.7 Total Bilirubin 5.6 H AST 75 H ALT 20 Alkaline Phosphatase 115 Total Protein 6.0 L Albumin 2.2 L Discharge Plan Discharge Anticipated Discharge Date/Time: 04/15/25 15:32 Patient Disposition: Home Health Service Discharge Diagnosis: Decompensated liver cirrhosis Referrals: [facility] [place] [Provider Group, Addiction Medicine] - 04/25/25 3:30 pm Referral Note: Please attend your intake appointment on Friday04/25/2025 at 3:30pm. Problems: Alcohol use disorder Dejan Rod MD [Primary Care Provider, Internal Medicine] - 1 Week Problems: Decompensation of cirrhosis of liver Nathan Gonzalez MD [Physician, Gastroenterology] - 1 Week Discharge Medications: New furosemide 40 mg Tablet 40 mg PO DAILY 30 Days Qty: 30 0RF Protocol: Hold for SBP< HOLD for SBP < : 90 naltrexone 50 mg Tablet 50 mg PO DAILY 30 Days Qty: 30 0RF spironolactone 25 mg Tablet 25 mg PO DAILY 50 Days Qty: 50 0RF Protocol: Hold for SBP< HOLD for SBP < : 90 folic acid 1 mg Tablet 1 mg PO DAILY 30 Days Qty: 30 0RF lactulose 10 gram/15 mL Solution 10 g PO BID 30 Days Qty: 900 0RF phytonadione (vitamin K1) 5 mg tablet 10 mg PO DAILY 10 Days Qty: 20 0RF Continued meloxicam 15 mg tablet 15 mg PO DAILY PRN (Reason: Pain) olmesartan 5 mg tablet 10 mg PO DAILY Discharge Orders: Discharge Order (Routine); Ordered 04/15/25 Ordered By: Nataliya Pal Diet: Low salt diet Activity on Discharge: As tolerated Stand Alone Forms: Patient Portal Discharge page, Substance Abuse Outpt Detox Print Language: French Other Ambulatory Orders: Prothrombin Time INR (DAILY@0900) Timeframe: 20250417 Facility: [facility] - Location: Laboratory Ordered By: Nataliya Aleti Prothrombin Time INR (DAILY@0900) Timeframe: 20250418 Facility: [facility] - Location: Laboratory Ordered By: Nataliya Aleti Prothrombin Time INR (DAILY@0900) Timeframe: 20250419 Facility: [facility] - Location: Laboratory Ordered By: Nataliya Aleti Prothrombin Time INR (DAILY@0900) Timeframe: 20250420 Facility: [facility] - Location: Laboratory Ordered By: Nataliya Aleti Prothrombin Time INR (DAILY@0900) Timeframe: 20250421 Facility: [facility] - Location: Laboratory Ordered By: Nataliya Aleti Prothrombin Time INR (DAILY@0900) Timeframe: 20250422 Facility: [facility] - Location: Laboratory Ordered By: Nataliya Aleti Prothrombin Time INR (DAILY@0900) Timeframe: 20250423 Facility: [facility] - Location: Laboratory Ordered By: Nataliya Aleti Prothrombin Time INR (DAILY@0900) Timeframe: 20250424 Facility: [facility] - Location: Laboratory Ordered By: Nataliya Aleti Prothrombin Time INR (DAILY@0900) Timeframe: 20250425 Facility: [facility] - Location: Laboratory Ordered By: Nataliya Aleti Prothrombin Time INR (DAILY@0900) Timeframe: 20250426 Facility: [facility] - Location: Laboratory Ordered By: Nataliya Aleti Care Plan Goals: Maintaining sobriety Close follow-up with VNA Avoid falls Refrain from alcohol Adherence to medications Needs to follow-up with primary care and GI within the next week She needs adjustment of her medications based on her clinical condition Health Concerns: See above Plan of Treatment: See above Assessment: See above Patient Instructions: Cirrhosis of the Liver (DC), Alcohol Use Disorder (DC), Alcoholic Hepatitis (DC), Encephalopathy (DC)
--- NOTE | 2025-04-15 15:56 | W.MHC.F2F ---
Service Date Service Date: 04/15/25 Encounter Date of encounter: 04/15/25 Reasons for Services Signs and symptoms assessed: yes Reason for long-term: wound care, monitoring of PT/INR, medication management and medication treatment Homebound: Leaving the home is medically contraindicated at this time without the asist of a device and/or another person due th the listed conditions above and below. Reason homebound: weakness related to hospital stay Certification: Based on the above findings, I certify that this patient is confined to the home and needs intermittent long-term care, physical therapy and/or speech therapy, or continues to need occupational therapy. The patient is under my care, and I have initiated the establishment of the plan of care. The patient will be followed by a physician who will periodically review the plan of care. Time Spent With Patient Time: Total time managing care of this patient today ____ minutes.
--- NOTE | 2025-04-15 16:15 | MHC.CM.PN ---
Pt has been medically cleared to [place], she will go home via family transport and have home care services from [facility].
== END 2025-04-15 18:34 | disposition home health service (06) | DRG 280 ==
LOC: HO.ED 16:03 → HO.EDOVER 16:36 → HO.IMC 19:21 → HO.S3 04-15 15:56 → HO.IMC 04-15 16:11
PROVIDERS: Physician Assistant; Physician Assistant Medical; Admitting Provider Family Medicine; Emergency Provider Emergency Medicine; PCP Family Medicine; Visit Provider Student in an Organized Health Care Education/Training Program
DX: K70.31 Alcoholic cirrhosis of liver with ascites (principal); K70.11 Alcoholic hepatitis with ascites; I81 Portal vein thrombosis; I82.0 Budd-Chiari syndrome; D61.818 Other pancytopenia; E87.1 Hypo-osmolality and hyponatremia; D68.4 Acquired coagulation factor deficiency; K72.10 Chronic hepatic failure without coma; R58 Hemorrhage, not elsewhere classified; F10.939 Alcohol use, unspecified with withdrawal, unspecified; L98.9 Disorder of the skin and subcutaneous tissue, unspecified; K72.00 Acute and subacute hepatic failure without coma; Y90.8 Blood alcohol level of 240 mg/100 ml or more; I10 Essential (primary) hypertension; Z79.899 Other long term (current) drug therapy
CPT/HCPCS: 36415; 74170; 76705; 80053; 80307; 82140; 82248; 82272; 83036; 83735; 83880; 85025; 85027; 85610; 86704; 86706; 86709; 86803; 86850; 86900; 86901; 87340; 93975; 99285; J0696; J2560; J3430; J3475; Q9967; S9485

== ENCOUNTER → 2025-04-08 14:19 | Outpatient (BNV) | payer BC, SELFPAY | PROVIDERS: Emergency Provider Emergency Medicine; PCP Family Medicine; Visit Provider Radiology Diagnostic Radiology | DX: I81 Portal vein thrombosis (principal); R18.8 Other ascites | CPT/HCPCS: 74170; 76705; 93975 ==

== ENCOUNTER → 2025-04-08 16:28 | Outpatient (BNV) | payer BC, SELFPAY | PROVIDERS: Admitting Provider Family Medicine; Emergency Provider Emergency Medicine; PCP Family Medicine; Visit Provider Surgery | DX: R23.3 Spontaneous ecchymoses (principal) | CPT/HCPCS: 17250; 99231; 99232; 99253 ==

== ENCOUNTER → 2025-04-08 16:28 | Outpatient (BNV) | payer BC, SELFPAY | PROVIDERS: Admitting Provider Family Medicine; Emergency Provider Emergency Medicine; PCP Family Medicine; Visit Provider Internal Medicine Gastroenterology | DX: K70.30 Alcoholic cirrhosis of liver without ascites (principal) | CPT/HCPCS: 99253 ==

== ENCOUNTER → 2025-04-08 16:28 | Outpatient (BNV) | payer BC, SELFPAY | PROVIDERS: Admitting Provider Family Medicine; Emergency Provider Emergency Medicine; PCP Family Medicine; Visit Provider Family Medicine | DX: K70.30 Alcoholic cirrhosis of liver without ascites (principal) | CPT/HCPCS: 99223; 99232; 99239; 99499; G0180 ==

== ENCOUNTER → 2025-04-08 16:28 | Outpatient (BNV) | payer BC, SELFPAY | PROVIDERS: Admitting Provider Family Medicine; Emergency Provider Emergency Medicine; PCP Family Medicine; Visit Provider Nurse Practitioner Psychiatric/Mental Health | DX: F10.90 Alcohol use, unspecified, uncomplicated (principal) | CPT/HCPCS: 99253 ==

== ENCOUNTER 2025-04-25 15:32 | Outpatient (AMB) | payer BC, SELFPAY ==
[2025-04-25 15:40] VITALS: BP 90/56; PULSE 86; O2SAT 98; BMI 31.8
--- NOTE | 2025-04-25 15:40 | A.OFFVIS_ITS ---
Vital Signs 04/25/25 15:40 Height 5 ft Weight 163 lb BMI 31.8 BP 90/56 L Blood Pressure Location Lt brachial Position Sitting Pulse 86 Pulse Source Pulse Oximeter Pulse Oximetry (%) 98 Oxygen Delivery Method Room Air Intake Visit Reasons: MAT Intake Allergies No Known Allergies Allergy (Verified 04/25/25 15:41) HPI Comments Details: The patient is a 54-year-old female presenting with for a MAT intake r/t AUD. She was previously admitted to [facility] for treatment related to AUD and cirrhosis on April 08. The patient reports she has remained abstinent from alcohol since her discharge from the hospital and is compliant with taking naltrexone 50 mg daily. Educational support regarding recovery resources, such as peer support, mental health services, and AA meetings, has been offered to reinforce her recovery process. Currently, the patient reports no additional symptoms or destabilizing stressors, highlighting her compliance and engagement with the treatment strategy since discharge. [facility] Medical History (Updated 04/23/25 @ 00:01 by Gilbert Watt) Hemorrhage of skin lesion Hypertension Social History Household Members: Children Housing: House Do you presently have visiting nurse or other home services: No Alcohol intake: current Alcohol intake frequency: 0-2 drinks per day Alcohol type: beer and wine Patient Tobacco Use Status: Former Tobacco user Tobacco use type: Cigarette e-Cigarette/Vaping Use: Never Used Advance Directives Date on File: 04/08/25 service: No Physical Exam Vital Signs: Last Vital Signs Pulse 86 04/25/25 15:40 BP 90/56 L 04/25/25 15:40 Pulse Ox 98 04/25/25 15:40 Oxygen Delivery Method Room Air 04/25/25 15:40 BMI result Body Mass Index 31.8 Assessment & Plan Assessment & Plan (1) Alcohol use disorder: Code(s): F10.90 - Alcohol use, unspecified, uncomplicated Category: Medical Plan The plan of care is to discontinue the naltrexone due to concerns of elevated LFT's and start on acamprosate 333 mg (two tablets three times per day). Education provided re: acamprosate including side effects, purpose, and general medication information. She is to continue on folic acid 1 mg and thiamine 100 mg daily. Participation in peer support and AA meetings is encouraged to aid her recovery. Referral to be sent to [facility] for mental health services. Follow up in one month or sooner if needed. county assessor provided additional educaton and information/brochures on community resources available. Medications: New thiamine mononitrate (vit B1) Take one tablet daily 100 mg PO DAILY 30 tabs 3RF 30 days acamprosate Take 2 tablets three times per day 666 mg (2 x 333 mg) PO TID 180 tabs 0RF 30 days Changed From folic acid 1 mg PO DAILY 30 days 30 tabs 0RF To folic acid Take one tablet daily 1 mg PO DAILY 30 tabs 3RF 30 days Discontinued phytonadione (vitamin K1) Discontinued Reason: Patient no longer taking 10 mg (2 x 5 mg) PO DAILY 10 days 20 tabs 0RF Patient Instructions: - Discontinue the naltrexone 50 mg once daily. - Start taking acamprosate as directed (two tablets three times daily). - Continue taking folic acid and thiamine daily. - Abstain from alcohol consumption. - Attend AA meetings or other support groups as often as you can. - Referral to be sent to [facility] for mental health services. - follow-up in 1 month or sooner if needed. - Call with questions, concerns, or to report side effects/new onset of symptoms to [facility]. - The patient verbalized understanding and agreed with plan of care. Coding Level of Care Code New Pt Level 3 (20671) Diagnoses Alcohol use disorder F10.90 MAT Intake Nursing Intake Reason for visit: AUD Are you currently using?: Yes What are you taking?: Alcohol When was your last use?: 04/07/25 How much?: 2 glasses wine What is your source of income?: FT employed What is your current relationship status?: Current PCP: Magdalena Miller Referral Source: inpatient Substance Abuse History Substance Abuse History (includes route, frequency and quantity): Alcohol, Marijuana (occasional use- none for a few weeks) and Tobacco (Quit 20 years ago) Social History Domestic Violence concerns: none Children: 2 adult Do you have a support system?: yes Current mode of transportation?: self Where are you currently residing?: [place] [facility] Use Have you ever shared needles?: No Have you ever belonged to a needle exchange program?: No Do you buy needles at a pharmacy?: No Have you ever overdosed?: No Number of lifetime overdoses: 0 Have you ever been hospitalized for an overdose?: No Was Naloxone administered?: Not applicable Recovery History Have you had any periods of recovery?: No What is your longest time in recovery?: couple weeks When was the last time you were in recovery?: 7 years ago Have you ever had inpatient treatment for your substance abuse disorder?: No Have you been in an inpatient detoxification program?: No (was inpatient from 04/08-04/15/25) Have you been in an inpatient Rehab/[facility] house?: No Have you been in an outpatient Methadone Maintenance program?: No Have you been in an outpatient Suboxone Maintenance program?: No Have you been in an AA/NA support program?: No Have you had a Recovery Support Hot Kettle Tender?: No Have you had Peer Support?: No Details: Putting in referral for [facility] Behavioral Health History Do you have a current provider? If so, who?: no diagnosis: none- feels depression is an issue- took anti-depressant in past and had suicidal thoughts History of other addictive behavior: no History of inpatient psychiatric hospitalization? If so, how many? Most Recent? Where?: no History of self harming thoughts?: Yes (when took an anti-depressant) History of homicidal or suicidal intentions?: No Medical Conditions Endocarditis?: No Skin Infection: No Seizure related to withdrawal or overdose: No Head or brain injury: No Hepatitis A (if yes, have you been treated?): No Hepatitis B (if yes, have you been treated?): No Hepatitis C (if yes, have you been treated?): No HIV (if yes, have you been treated?): No TB (if yes, have you been treated?): No Other: No Legal History History of incarceration: No Currently on parole or probation: No Court mandated programs: No Pending court cases: No DCF involvement: No
== END 2025-04-25 16:29 | disposition home or self-care (01) ==
LOC: HO.HCC 15:32
PROVIDERS: PCP Family Medicine; Visit Provider Clinical Nurse Specialist Psychiatric/Mental Health
DX: F10.90 Alcohol use, unspecified, uncomplicated (principal)
CPT/HCPCS: 99203

== ENCOUNTER 2025-05-25 14:34 | Outpatient (AMB) | payer BC, SELFPAY ==
[2025-05-25 14:54] VITALS: BP 110/66; PULSE 88; O2SAT 98
--- NOTE | 2025-05-25 14:54 | A.OFFVIS_ITS ---
Vital Signs 05/25/25 14:54 BP 110/66 Pulse 88 Pulse Oximetry (%) 98 Intake Visit Reasons: MAT Allergies No Known Allergies Allergy (Verified 05/25/25 14:55) Medication List - Last Reconciled 05/25/25 by MARGARET Ortiz acamprosate 666 mg (2 x 333 mg) PO TID 30 days folic acid 1 mg PO DAILY 30 days furosemide 40 mg See Protocol PO DAILY 30 days lactulose 10 grams (15 mL) PO BID 30 days meloxicam 15 mg PO DAILY PRN olmesartan 10 mg PO DAILY spironolactone 25 mg See Protocol PO DAILY 50 days thiamine mononitrate (vit B1) 100 mg PO DAILY 30 days HPI Comments Details: A 54-year-old female presents for follow-up visit r/t AUD in early remission with acamprosate. Reports returning to working full-time and doing well. To date has not participated in supportive services, although notes she will consider doing so in the near future. [facility] Medical History (Updated 04/23/25 @ 00:01 by Gilbert Watt) Hemorrhage of skin lesion Hypertension Social History Household Members: Children Housing: House Do you presently have visiting nurse or other home services: No Alcohol intake: current Alcohol intake frequency: 0-2 drinks per day Alcohol type: beer and wine Patient Tobacco Use Status: Former Tobacco user Tobacco use type: Cigarette e-Cigarette/Vaping Use: Never Used Advance Directives Date on File: 04/08/25 service: No Review of Systems Const All systems reviewed & are unremarkable except as noted in HPI and below Physical Exam Vital Signs: Last Vital Signs Pulse 88 05/25/25 14:54 BP 110/66 05/25/25 14:54 Pulse Ox 98 05/25/25 14:54 Const General: cooperative Assessment & Plan Assessment & Plan (1) Alcohol use disorder: Code(s): F10.90 - Alcohol use, unspecified, uncomplicated Category: Medical Plan The plan of care is to continue with acamprosate 333 mg 2 tablets 3 times per day. Folic acid and thiamine daily. T/w encouraged patient to consider including supportive services to assist in recovery process. Follow-up in 2 months or sooner if needed. Medications: Refilled acamprosate Take 2 tablets three times per day 666 mg (2 x 333 mg) PO TID 180 tabs 2RF 30 days Patient Instructions: - Continue with acamprosate, folic acid, and thiamine as prescribed. - Encouraged to follow-up with supportive services to assist in recovery process. - Follow-up in 2 months or sooner if needed. - Call with questions, concerns, or to report side effects/new onset of symptoms to [facility]. - The patient verbalized understanding and agreed with plan of care. Coding Level of Care Code Est Pt Level 3 (59714) Diagnoses Alcohol use disorder F10.90
== END 2025-05-25 15:14 | disposition home or self-care (01) ==
LOC: HO.HCC 14:34
PROVIDERS: PCP Family Medicine; Visit Provider Clinical Nurse Specialist Psychiatric/Mental Health
DX: F10.90 Alcohol use, unspecified, uncomplicated (principal)
CPT/HCPCS: 99213

== ENCOUNTER 2025-07-11 12:50 | Outpatient (REF) | payer BC, SELFPAY ==
[2025-07-11 15:12] LABS: Hematocrit 24.2 % (37.0-47.0); Hemoglobin 8.1 g/dl (12.0-16.0); Mean Corpuscular HGB Conc 33.5 g/dl (31.0-35.0); Mean Corpuscular Hemoglobin 33.3 pg (27.0-33.0); Mean Corpuscular Volume 99.6 fL (80.0-98.0); NRBC Abs Auto 0.000 X10*3/uL (0.0-0.012); NRBC Pct Auto 0.0 /100WBC (0.0-0.2); Platelet Count 136 X10*3/uL (160-400); Red Blood Count 2.43 X10*6/uL (4.20-5.50); White Blood Count 8.6 X10*3/uL (4.8-10.8)
[2025-07-11 15:13] LABS: INTERNATIONAL NORM RATIO 1.7 (0.9-1.1); Prothrombin Time 20.2 SEC (11.2-13.5)
[2025-07-11 15:48] LABS: Alanine Aminotransferase 53 U/L (0-31); Albumin Level 2.4 g/dL (3.5-5.0); Alkaline Phosphatase 168 U/L (39-117); Anion Gap 11 (12-20); Aspartate Amino Transferase 80 U/L (5-31); Blood Urea Nitrogen 20 mg/dL (9-16); Calcium 8.2 mg/dL (8.4-10.2); Carbon Dioxide 22 mmol/L (22-29); Chloride 102 mmol/L (96-108); Estimated Glomerular Filt Rate > 60; Iron 80 mcg/dL (30-160); Percent Iron Saturation 44 % (15-50); Potassium 3.9 mmol/L (3.3-5.1); Sodium 131 mmol/L (135-145); Total Iron Binding Capacity 182 mcg/dL (228-428); Total Protein 6.5 g/dL (6.5-8.0); Unsaturated Iron Binding 102 ug/dL
[2025-07-11 15:59] LABS: Ferritin 200 ng/mL (10-250)
[2025-07-11 16:11] LABS: Folate 13.3 ng/mL (> or = 4.0); Vitamin B12 1968 pg/mL (200-900)
== END 2025-07-11 12:51 | disposition home or self-care (01) ==
LOC: HO.LAB 12:50
PROVIDERS: PCP Family Medicine; Visit Provider Internal Medicine
DX: K70.30 Alcoholic cirrhosis of liver without ascites (principal); F10.90 Alcohol use, unspecified, uncomplicated; D64.9 Anemia, unspecified
CPT/HCPCS: 36415; 80053; 82306; 82607; 82728; 82746; 83540; 85027; 85610

== ENCOUNTER 2025-07-11 12:50 | Outpatient (AMB) | payer BC, SELFPAY ==
--- OUTSIDE RECORDS SUMMARY | 2025-07-08 23:59 | XMS_ITS | Continuity of Care Document ---
Author Organization [facility] August[facility] Address [address] [place] [address]- Care Team Providers Care Griddle Attendant Name Role Phone Viola HAMLIN, Dejan Liang Primary Care Physician [place] [facility] Date(s): 06/08/25 - 07/08/25 [facility] Adult [address] [place] [address]- Encounter Type: Triage Allergies, Adverse Reactions, Alerts Substance Criticality Severity Reaction Reaction Severity Status tiZANidine Hallucinations Acti ve Immunizations Given and Recorded Vaccine Date Status Refusal Reason influenza virus vaccine, inactivated 1 06/10/22 Gi danyel tetanus/diphtheria/pertussis, acel(Tdap) 2 11/21/21 Given SARS-CoV-2 (COVID-19) mRNA BNT-162b2 vac 11/25/20 Recorded SARS-CoV-2 (COVID-19) mRNA BNT-162b2 vac 11/04/20 Recorded tetanus-diphtheria toxoids (Td) 05/01/06 Given 1Result Comment: [id number] 2Result Comment: [id number] Medications acamprosate 333 mg oral delayed release tablet 2 tablet = 666 mg, By Mouth, 3 times a day, # 180 tablet, 0 Refills, Maintenance, 05/25/25 4:50:00 PM EDT, CR Tablet, Partial fill upon patient request if the prescription is for a schedule II opioiddrug. Start Date: 05/25/25 Status: Ordered Medication Dispense Status: Completed Quantity: 180.0 Unit: tablet Total Allowed Fills: 1 Fills Dispensed: 0 fluticasone 50 mcg/inh nasal spray 2 sprays, Nares, Both, Daily, # 1 each, 11 Refills, Maintenance, 04/07/23 4:46:00 PM EDT, [facility] # [facility], 2 sprays Nares, Both Daily, 152.3, cm, 04/07/23 16:32:00 EDT, Height, 65.5, kg, 11/19/22 6:46:00 EDT, Dry Weight Start Date: 04/07/23 Status: Ordered Medication Dispense Status: Completed Quantity: 1.0 Unit: each Total Allowed Fills: 12 Fills Dispensed: 0 folic acid 1 mg oral tablet 1 mg, 1, tablet, By Mouth, Daily, Refills 0, Maintenance, 04/20/25 1:34:00 PM EDT, Partial fill uponpatient request if the prescription is for a schedule II opioid drug. Start Date: 04/20/25 Status: Ordered Medication Dispense Status: Completed Total Allowed Fills: 1 Fills Dispensed: 0 furosemide 40 mg oral tablet 1, tablet, By Mouth, Daily, # 30 tablet, Refills 5, Tot. Refills 5, Maintenance, 07/06/25 6:56:00 AM EST, Route to Pharmacy Electronically, [facility] # [facility], 157.5, cm, 05/25/25 16:35:00 EDT, Height Start Date: 07/06/25 Status: Ordered Medication Dispense Status: Completed Quantity: 30.0 Unit: tablet Total Allowed Fills: 6 Fills Dispensed: 0 lactulose 10 gm/15 ml oral syrup 15 mL = 10 Gm, By Mouth, 2 times a day, # 900 mL, 1 Refills, Acute 07/28/25 3:53:00 AM EST, 05/28/25 3:52:00 AM EDT, Syrup, [facility] # 50, Partial fill upon patient request if the prescription is for a schedule II opioid drug., 15 mL By Mouth 2 times a day, 157.5, cm, 05/25/25 16:35:00 EDT, Height Start Date: 05/28/25 Stop Date: 07/28/25 Status: Ordered Medication Dispense Status: Completed Quantity: 900.0 Unit: mL Total Allowed Fills: 2 Fills Dispensed: 0 olmesartan 5 mg oral tablet 2 tablet, By Mouth, Daily, # 60 tablet, 11 Refills, Maintenance, 11/18/24 6:47:00 AM EDT, [facility] # 50, 151.5, cm, 09/15/24 8:48:00 EST, Height Start Date: 11/18/24 Status: Ordered Medication Dispense Status: Completed Quantity: 60.0 Unit: tablet Total Allowed Fills: 1 Fills Dispensed: 0 spironolactone 25 mg oral tablet 1, tablet, By Mouth, Daily, # 30 tablet, Refills 5, Tot. Refills 5, Maintenance, 07/06/25 6:56:00 AM EST, Route to Pharmacy Electronically, [facility] # 50, 157.5, cm, 05/25/25 16:35:00 EDT, Height Start Date: 07/06/25 Status: Ordered Medication Dispense Status: Completed Quantity: 30.0 Unit: tablet Total Allowed Fills: 6 Fills Dispensed: 0 zolpidem 10 mg oral tablet 1 tablet, By Mouth, Daily at bedtime, PRN NEEDED, INSOMNIA., # 10 tablet, 5 Refills, Maintenance, 12/28/24 5:17:00 PM EDT, [facility] # 50, 157.5, cm, 12/23/24 11:31:00 EDT, Height Start Date: 12/28/24 Stop Date: 06/29/25 Status: Ordered Medication Dispense Status: Completed Quantity: 10.0 Unit: tablet Total Allowed Fills: 6 Fills Dispensed: 0 Problem List Condition Confirmation Course Effective Dates Status Health St atus Informant Allergic rhinitis Confirmed Active Atypical ductal hyperplasia (ADH) of Left breast, 2022 Confirmed Active Cirrhosis of liver Confirmed Active Dysthymia Confirmed Active Essential hypertension Confirmed Active Family history of breast cancer Confirmed Active HLD (hyperlipidemia) Confirmed Active Insomnia Confirmed Active Migraine headache with aura Confirmed Active Facial neuralgia Confirmed Active Hepatic steatosis Confirmed Active Patient Care team information Care Team Personnel Name: Leonarda Dos Santos RN Position: [facility] AMB Nurse Member Role: Primary Care Nurse Name: Dejan Rod MD Position: [facility] Physician - Primary Care Member Role: PCP Address: [address] [place] [address]- [place] Tele[employer]: Name: Samina Rosen RN Position: S RN Member Role: Primary Care Nurse Care Team Related Persons Name: AMINTA HORVATH Insurance Providers Guarantor name: MANNY GAMADANNA [facility] Plan Information #: 1 [facility] Payer Identifier: NA Member Number: [id number] Group Number: [id number] Subscriber Identifier: NA Relationship to Subscriber: self Coverage Type: NA Coverage Verification Date: NA Telecom: NA Address: NA
--- OUTSIDE RECORDS SUMMARY | 2025-07-08 23:59 | XMS_ITS | Continuity of Care Document ---
Author Organization [facility] Address [address] [place] [address]- Care Team Providers Care Sr Community Manager Name Role Phone Viola HAMLIN, Dejan Liang Primary Care Physician [place] [facility] [place] 07/08/25 [facility] Adult [address] [place] [address]- Encounter Type: Triage Allergies, Adverse Reactions, Alerts Substance Criticality Severity Reaction Reaction Severity Status tiZANidine Hallucinations Acti ve Immunizations Given and Recorded Vaccine Date Status Refusal Reason influenza virus vaccine, inactivated 1 06/10/22 Gi danyel tetanus/diphtheria/pertussis, acel(Tdap) 2 11/21/21 Given SARS-CoV-2 (COVID-19) mRNA BNT-162b2 vac 11/25/20 Recorded SARS-CoV-2 (COVID-19) mRNA BNT-162b2 vac 11/04/20 Recorded tetanus-diphtheria toxoids (Td) 05/01/06 Given 1Result Comment: [id number] 2Result Comment: [id number] Medications acamprosate 333 mg oral delayed release [...] 6:56:00 AM EST, Route to Pharmacy Electronically, [facility] # [facility], 157.5, cm, 05/25/25 16:35:00 EDT, Height Start Date: 07/06/25 Status: Ordered Medication Dispense Status: Completed Quantity: 30.0 Unit: tablet Total Allowed Fills: 6 Fills Dispensed: 0 lactulose 10 gm/15 ml oral syrup 15 mL = 10 Gm, By Mouth, 2 times a day, # 900 mL, 1 Refills, Acute 07/28/25 3:53:00 AM EST, 05/28/25 3:52:00 AM EDT, Syrup, [facility] # 50, Partial fill upon patient [...] 11 Refills, Maintenance, 11/18/24 6:47:00 AM EDT, [facility] # 50, 151.5, cm, 09/15/24 8:48:00 EST, Height Start Date: 11/18/24 Status: Ordered Medication Dispense Status: Completed Quantity: 60.0 Unit: tablet Total Allowed Fills: 1 Fills Dispensed: 0 spironolactone 25 mg oral tablet 1, tablet, By Mouth, Daily, # 30 tablet, Refills 5, Tot. Refills 5, Maintenance, 07/06/25 6:56:00 AM EST, Route to Pharmacy Electronically, [facility] # 50, 157.5, cm, 05/25/25 16:35:00 EDT, Height Start Date: 07/06/25 Status: Ordered Medication Dispense Status: Completed Quantity: 30.0 Unit: tablet Total Allowed Fills: 6 Fills Dispensed: 0 zolpidem 10 mg oral tablet 1 tablet, By Mouth, Daily at bedtime, PRN NEEDED, INSOMNIA., # 10 tablet, 5 Refills, Maintenance, 12/28/24 5:17:00 PM EDT, [facility] # 50, 157.5, cm, 12/23/24 11:31:00 [...] Personnel Name: Leonarda Dos Santos RN Position: [facility] AMB Nurse Member Role: Primary Care Nurse Name: Dejan Rod MD Position: [facility] Physician - Primary Care Member Role: PCP Address: [address] [place] [address]- [place] Telecom: Name: Samina Rosen RN Position: S RN Member Role: Primary Care Nurse Care Team Related Persons Name: AMINTA HORVATH Insurance Providers Guarantor name: MANNY GAMADANNA [facility] Plan Information #: 1 [facility] Payer Identifier: NA Member Number: [id number] Group Number: [id number] Subscriber Identifier: NA Relationship to Subscriber: self Coverage Type: NA Coverage Verification Date: NA Telecom: NA Address: NA
--- OUTSIDE RECORDS SUMMARY | 2025-07-09 23:59 | XMS_ITS | Continuity of Care Document ---
Author Organization [facility] Address [address] [place] [address]- Care Team Providers Care Agent Telegrapher Name Role Phone Viola HAMLIN, Dejan Liang Primary Care Physician [phone] Encounter [facility] Date(s): 06/09/25 - 07/09/25 [facility] Adult [address] [place] [address]- Encounter Type: Triage Allergies, Adverse Reactions, Alerts Substance Criticality Severity Reaction Reaction Severity Status tiZANidine Hallucinations Acti ve Immunizations Given and Recorded Vaccine Date Status Refusal Reason influenza virus vaccine, inactivated 1 06/10/22 Gi danyel tetanus/diphtheria/pertussis, acel(Tdap) 2 11/21/21 Given SARS-CoV-2 (COVID-19) mRNA BNT-162b2 vac 11/25/20 Recorded SARS-CoV-2 (COVID-19) mRNA BNT-162b2 vac 11/04/20 Recorded tetanus-diphtheria toxoids (Td) 05/01/06 Given 1Result Comment: [id number] 2Result Comment: [id number] Medications acamprosate 333 mg oral delayed release [...] 6:56:00 AM EST, Route to Pharmacy Electronically, [facility] # 50, 157.5, cm, 05/25/25 16:35:00 EDT, Height Start Date: 07/06/25 Status: Ordered Medication Dispense Status: Completed Quantity: 30.0 Unit: tablet Total Allowed Fills: 6 Fills Dispensed: 0 lactulose 10 gm/15 ml oral syrup 15 mL = 10 Gm, By Mouth, 2 times a day, # 900 mL, 1 Refills, Acute 07/28/25 3:53:00 AM EST, 05/28/25 3:52:00 AM EDT, Syrup, [facility] # 50, Partial fill upon [...] 11 Refills, Maintenance, 11/18/24 6:47:00 AM EDT, [facility] # 50, 151.5, cm, 09/15/24 8:48:00 EST, Height Start Date: 11/18/24 Status: Ordered Medication Dispense Status: Completed Quantity: 60.0 Unit: tablet Total Allowed Fills: 1 Fills Dispensed: 0 spironolactone 25 mg oral tablet 1, tablet, By Mouth, Daily, # 30 tablet, Refills 5, Tot. Refills 5, Maintenance, 07/06/25 6:56:00 AM EST, Route to Pharmacy Electronically, [facility] # 50, 157.5, cm, 05/25/25 16:35:00 EDT, Height Start Date: 07/06/25 Status: Ordered Medication Dispense Status: Completed Quantity: 30.0 Unit: tablet Total Allowed Fills: 6 Fills Dispensed: 0 zolpidem 10 mg oral tablet 1 tablet, By Mouth, Daily at bedtime, PRN NEEDED, INSOMNIA., # 10 tablet, 5 Refills, Maintenance, 12/28/24 5:17:00 PM EDT, [facility] # 50, 157.5, cm, 12/23/24 [...] Personnel Name: Leonarda Dos Santos RN Position: [facility] AMB Nurse Member Role: Primary Care Nurse Name: Dejan Rod MD Position: [facility] Physician - Primary Care Member Role: PCP Address: [address] [place] [phone]- [place] Tele[employer]: Name: Samina Rosen RN Position: S RN Member Role: Primary Care Nurse Care Team Related Persons Name: AMINTA HORVATH Insurance Providers Guarantor name: MANNY GAMADANNA [facility] Plan Information #: 1 [facility] Payer Identifier: NA Member Number: [id number] Group Number: [id number] Subscriber Identifier: NA Relationship to Subscriber: self Coverage Type: NA Coverage Verification Date: NA Telecom: NA Address: NA
--- NOTE | 2025-07-11 12:54 | A.OFFVIS_ITS ---
Vital Signs 07/11/25 12:57 Height 5 ft Weight 160 lb 14.999 oz BMI 31.4 BP 118/40 L Blood Pressure Location Lt brachial Position Sitting Pulse 98 Intake Visit Reasons: Cirrhosis Intake Note: Avelina presents in the office as a follow up for Cirrhosis. CC: She states that she is not having any internal symptoms but she states that her legs are a little swollen and her ankles. She does compression socks and states that he is maybe not have hydration as much as she should - she has a rash that she keeps itching - it is mostly on the left leg and her forearms have the rash as well. [employer] Operator Required: No Allergies No Known Allergies Allergy (Verified 07/11/25 12:59) HPI Comments Details: 54 y.o F with PMH of etOH use disorder that has led to cirrhosis who is being seen for post hospitalization follow up. Seen initially by Dr Gonzalez. Lanre leon was brought to the ER in Mar by her children for concern with drinking too much and appearing jaundiced. This occurred during a period of significant stress, as her had moved out and lost his job. In terms of symptoms she experienced fatigue, poor sleep, pain in the upper abdomen and back, and felt she was less present and not as sharp, although she continued to work. During the hospitalization she was notedto be jaundiced with bili 8. Anemia with Hb 7. Imaging initially with concern for PVT but CT with contrast was neg for thrombosis or stenosis. The patient reports a history of drinking for many years, with increased consumption when she was younger. Prior to her hospitalization, she was drinking a beer and a couple of glasses of wine daily. Her last alcoholic beverage was the evening before she went to the hospital in March, and she has been a bstinent since. She has no history of DUIs, rehab, or detox programs. She reports occasional marijuana use and denies any other illicit drug use. She quit smoking many years ago. Her family history is notable for alcohol use in her father and sister. There is no family history of colon cancer. [place] 07/2022 - [facility] x4 polyps removed. 3 T.A and 1 SSL. [facility] Medical History (Updated 07/11/25 @ 13:51 by Carly Patino MD) Hemorrhage of skin lesion Hypertension Surgical History (Updated 07/11/25 @ 13:00 by WILFRID Sierra) History of ankle surgery H/O section Hx of cholecystectomy Hx of colonoscopy History of esophagogastroduodenoscopy (EGD) Social History Household Members: Children Housing: House Do you presently have visiting nurse or other home services: No Alcohol intake: current Alcohol intake frequency: 0-2 drinks per day Alcohol type: beer and wine Patient Tobacco Use Status: Former Tobacco user Tobacco use type: Cigarette e-Cigarette/Vaping Use: Never Used Advance Directives Date on File: 04/08/25 service: No Review of Systems Narrative Review of Systems - General: Reports fatigue. - Eyes: Reports history of jaundice. - Gastrointestinal: Reports history of pain in the upper abdomen and back. - Neurological: Reports feeling less present and not as sharp. - Sleep: Reports poor sleep. - Extremities: Reports persistent swelling in her ankles. - Skin: Reports an itchy rash on her ankles. Physical Exam Exam Exam: - Eyes: Scleral icterus noted. - Extremities: Bilateral ankle edema observed, along with excoriation leonard. - Abd: no abd tenderness or distention. - Neurologic: Negative for asterixis. Vital Signs: Last Vital Signs Pulse 98 07/11/25 12:57 BP 118/40 L 07/11/25 12:57 BMI result Body Mass Index 31.4 Assessment & Plan Assessment & Plan (1) Alcohol use disorder: Code(s): F10.90 - Alcohol use, unspecified, uncomplicated Category: Medical (2) Cirrhosis: Code(s): K74.60 - Unspecified cirrhosis of liver Category: Medical Qualifiers: Ascites presence: unspecified Hepatic cirrhosis type: alcoholic cirrhosis Qualified Code(s): K70.30 - Alcoholic cirrhosis of liver without ascites (3) Anemia: Code(s): D64.9 - Anemia, unspecified Category: Medical Plan 1. Alcohol-Related Cirrhosis of the Liver - The patient has a new diagnosis of cirrhosis, likely secondary to alcohol use, with ongoing evidence of jaundice and edema. She has been abstinent for over three months. Plan: - Updated MELD labs - US Abd - Will most likely need an EGD if platelet count remains low. - No ascites on exam today. Pt on furosemide and spironolactone since Mar. Will review further indication based on w/up above. - Avoid NSAIDs, tylenol OK if needed. 2. Anemia - Low H/H noted in CBC during hospitalization: - Plan: - Check CBC, iron panel, B12 and folate 3. Colon Polyp Surveillance - The patient is due for a surveillance colonoscopy early 2025. - EGD to be booked alongside if indicated - see above. Follow up 6-8 weeks Orders: Orders Complete Blood Count no Diff Today K70.30 - Alcoholic cirrhosis of liver without ascites US abdomen complete Today K70.30 - Alcoholic cirrhosis of liver without ascites Vitamin B12 and Folate Today F10.90 - Alcohol use, unspecified, uncomplicated Comprehensive Met. Panel Today K70.30 - Alcoholic cirrhosis of liver without ascites Prothrombin Time INR Today K70.30 - Alcoholic cirrhosis of liver without ascites Vitamin D 25-OH Total Today F10.90 - Alcohol use, unspecified, uncomplicated Ferritin Today F10.90 - Alcohol use, unspecified, uncomplicated IRON PROFILE Today F10.90 - Alcohol use, unspecified, uncomplicated Patient Instructions: - Please go to the lab to have your blood drawn today - The hospital's radiology department will call you to schedule your ultrasound appointment. - We will discuss the need and timing for an upper endoscopy (a procedure to look at your esophagus with a camera) at your next visit after we review your test results. - We will also review results from [facility] to determine timing of next colonoscopy. Coding Level of Care Code Est Pt Level 5 (61512) Add On Problem Visit Only Diagnoses Alcohol use disorder F10.90 Alcoholic cirrhosis, unspecified whether ascites present K70.30 Ascites presence: unspecified Hepatic cirrhosis type: alcoholic cirrhosis Anemia D64.9
[2025-07-11 12:57] VITALS: BP 118/40; PULSE 98; BMI 31.4
== END 2025-07-11 13:39 | disposition home or self-care (01) ==
LOC: HO.HGI 12:51
PROVIDERS: PCP Family Medicine; Visit Provider Internal Medicine
DX: K70.30 Alcoholic cirrhosis of liver without ascites (principal); F10.90 Alcohol use, unspecified, uncomplicated; D64.9 Anemia, unspecified
CPT/HCPCS: 99214

== ENCOUNTER 2025-07-19 14:31 | Outpatient (AMB) | payer BC, SELFPAY ==
--- NOTE | 2025-07-19 15:01 | MHC.AM.SUB ---
Vital Signs 07/19/25 15:02 BP 102/50 L Blood Pressure Location Rt brachial Position Sitting Pulse 66 Pulse Source Pulse Oximeter Pulse Oximetry (%) 96 Oxygen Delivery Method Room Air Intake Visit Reasons: MAT Allergies No Known Allergies Allergy (Verified 07/11/25 12:59) HPI Comments Details: A 54 year old female presents for a follow-up visit r/t AUD in sustained remission with the acamprosate 333 mg, 2 tablets TID. Reports several months of sobriety and is feeling stable. Engages in conversation re: focused on improving overall physical health and spending quality time with family over the holidays. Review of Systems Const All systems reviewed & are unremarkable except as noted in HPI and below Physical Exam Vital Signs: Last Vital Signs Pulse 66 07/19/25 15:02 BP 102/50 L 07/19/25 15:02 Pulse Ox 96 07/19/25 15:02 Oxygen Delivery Method Room Air 07/19/25 15:02 Const General: cooperative PENDING SALE TO [facility] Medical History Hemorrhage of skin lesion Hypertension Surgical History History of ankle surgery H/O section Hx of cholecystectomy Hx of colonoscopy History of esophagogastroduodenoscopy (EGD) Social History Household Members: Children Housing: House Do you presently have visiting nurse or other home services: No Alcohol intake: current Alcohol intake frequency: 0-2 drinks per day Alcohol type: beer and wine Patient Tobacco Use Status: Former Tobacco user Tobacco use type: Cigarette e-Cigarette/Vaping Use: Never Used Advance Directives Date on File: 04/08/25 service: No Assessment & Plan Assessment & Plan (1) Alcohol use disorder, severe, in early remission: Code(s): F10.21 - Alcohol dependence, in remission Category: Medical Plan The plan of care is to continue with the acamprosate 333 mg, 2 tablets TID, thiamine 100 mg, and folic acid 1 mg daily. Follow-up in 4 months or sooner if needed. Medications: Changed From thiamine mononitrate (vit B1) Take one tablet daily 100 mg PO DAILY 30 days 30 tabs 3RF To thiamine mononitrate (vit B1) Take one tablet daily 100 mg PO DAILY 90 tabs 0RF 90 days From folic acid Take one tablet daily 1 mg PO DAILY 30 days 30 tabs 3RF To folic acid Take one tablet daily 1 mg PO DAILY 90 tabs 0RF 90 days Refilled acamprosate Take 2 tablets three times per day 666 mg (2 x 333 mg) PO TID 180 tabs 3RF 30 days Patient Instructions: - Continue with acamprosate, thiamine, and folic acid as prescribed. - Follow-up in 4 months or sooner if needed. - Call with questions, concerns, or to report side effects/new onset of symptoms to [facility]. - The patient verbalized understanding and agreed with plan of care.
[2025-07-19 15:02] VITALS: BP 102/50; PULSE 66; O2SAT 96
== END 2025-07-19 15:10 | disposition home or self-care (01) ==
LOC: HO.HCC 14:31
PROVIDERS: PCP Family Medicine; Visit Provider Clinical Nurse Specialist Psychiatric/Mental Health
DX: F10.21 Alcohol dependence, in remission (principal)
CPT/HCPCS: 99213